=== PATIENT | female | born 1995 | race Caucasian/White ===

== ENCOUNTER 2021-11-12 17:59 | Emergency (ER) | payer BC, SELFPAY ==
--- NOTE | ~2021-11-12 | XR_ITS ---
EXAM: XR lumbar spine min 4V DATE: 11/12/2021 20:30 HISTORY: low back pain L4-L5 ranging right to left [id number] no injury . COMPARISON: None available. FINDINGS: Hypoplastic ribs at T12. 5 nonrib-bearing lumbar-type vertebral bodies. Pedicles intact. No rmal vertebral body alignment. Vertebral body heights preserved. Disc spaces maintained. Normal facet s and posterior elements. No fracture or dislocation. IMPRESSION: No acute fracture or traumatic malalignment in the lumbar spine. Reviewed, dictated and finalized at location K.
[2021-11-12 18:30] VITALS: BP 123/73; PULSE 86; RESP 16; TEMP 36.6; O2SAT 99
--- NOTE | 2021-11-12 19:55 | ED.BACK ---
HPI - Back Pain/Injury General Chief Complaint: Back Pain/Injury Stated Complaint: pinched nerve Time Seen by Provider: 11/12/21 19:42 Source: RN notes reviewed History of Present Illness HPI Narrative: Patient presents emergency room from home for back pain. Patient states pain is located in the lower back bilaterally and radiates into her bilateral legs states the pain is been ongoing since approximately July. She denies any direct trauma or injury to the back she denies any fevers or chills abdominal pain bowel or bladder incontinence she does note intermittent tingling in the bilateral legs. 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 states she did see her PCP and is on gabapentin she is had no previous imaging of her back Related Data Home Medications Medication Instructions Recorded Confirmed gabapentin 300 mg capsule mg 11/12/21 Allergies Allergy/AdvReac Type Severity Reaction Status Date / Time No Known Allergies Allergy Verified 11/12/21 19:40 Review of Systems Review of Systems: Gen.: Denies fevers or chills ENT: Denies congestion Respiratory: Denies shortness of breath CV: Denies chest pain GI: Denies abdominal pain nausea, emesis or diarrhea denies bowel or bladder incontinence Musculoskeletal: See HPI Neuro: Denies numbness, tingling, weakness or focal weakness Skin: Denies rash Except as documented, all other systems reviewed and negative [facility] Past Medical History Medical History Asthma Surgical History Surgical History History of (10/06/17) Family History Family History Other Unknown family medical history Social History Social History Smoking status: Never smoker Alcohol intake: current Alcohol use details: rare Substance use: never Substance use type: does not use Additional living arrangements comments: boyfriend and son 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 Clear to auscultation bilaterally. Abdomen: Soft and nontender, no rebound or guarding MUSCULOSKELETAl: Moves all extremities, no clubbing cyanosis or edema Back: No midline lumbar tenderness to palpation or step-off, tender to palpation over bilateral paravertebral muscles L3-5 , pain increased with forward flexion NEURO: Awake and alert. Following commands, speech normal, no focal deficits, muscle strength 5 out of 5 bilateral lower extremities, bilateral patellar reflex 2+ SKIN:: Warm, dry. Normal Color no rash or lesions Course Course Emergency Course: Discussed with patient results of workup and diagnosis. Discussed need for follow-up with primary care, proper use of medication, and reasons to return to the emergency department. Patient understands and agrees to current treatment plan. Patient states that lidocaine patches have been helping with her back Vital Signs Vital signs: Vital Signs Temperature 97.8 F 11/12/21 18:30 Pulse Rate 86 11/12/21 18:30 Respiratory Rate 16 11/12/21 18:30 Blood Pressure 123/73 11/12/21 18:30 Pulse Oximetry 99 11/12/21 18:30 Temperature 97.8 F 11/12/21 18:30 Pulse Rate 86 11/12/21 18:30 Respiratory Rate 16 11/12/21 18:30 Blood Pressure 123/73 11/12/21 18:30 Pulse Oximetry 99 11/12/21 18:30 MDM - Back Pain/Injury MDM Narrative Medical decision making narrative: Patient?s pain is positional and localiz
[2021-11-12] MEDS: predniSONE 20 MG TABLET 60 MG PO (20:00)
== END 2021-11-12 20:55 | disposition home or self-care (01) ==
LOC: ANHED 20:45
PROVIDERS: Emergency Provider Emergency Medicine; PCP Physician Assistant
DX: M54.50 Low back pain, unspecified (principal); J45.909 Unspecified asthma, uncomplicated
CPT/HCPCS: 72110; 81025; 99283; J7512

== ENCOUNTER 2022-03-18 05:28 | Emergency (ER) | payer BC, SELFPAY ==
--- NOTE | ~2022-03-18 | XR_ITS ---
Portable chest x-ray Comparison: None Clinical History: Dyspnea Findings: Lungs are clear, without focal consolidation or pleural effusion. Cardiomediastinal silho uette is unremarkable. Bones and soft tissues are unremarkable. Impression: Normal chest. Reviewed, dictated and finalized at location . [facility] Impression: Normal chest.
[2022-03-18 05:31] VITALS: BP 122/76; PULSE 106; RESP 20; TEMP 37; O2SAT 97
[2022-03-18 05:38] VITALS: O2SAT 98
--- NOTE | 2022-03-18 05:40 | PC.NURSE ---
Pt states her asthma was triggered by her nathan's hay last night. She felt better after using her albuterol inhaler and was able to fall asleep. She woke up this morning and felt SOB and has audible wheezing. She ran out of her inhaler so she came in. Skin is warm and dry. Able to speak in full sentences. Wheezes heard throughout all lobes.
--- NOTE | 2022-03-18 05:48 | ED.GENADULT ---
HPI - General Adult General Chief complaint: Shortness of Breath/Dyspnea Stated complaint: dyspnea Time Seen by Provider: 03/18/22 05:38 History of Present Illness HPI narrative: this is a 26-year-old female with history of asthma presenting to ED with difficulty breathing. Patient says that she was replacing the straw for her 3 Chinchillas (Pheobe, Dulce, and Gil) when dust came out of the straw and started to irritate her lungs. The patient did not have an albuterol inhaler at home. She was able to go to sleep when she woke up this morning it was even worse. Patient typically has well-controlled asthma does not use the emergency room on a regular basis. 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 She believes that is not helping her asthma situation. She denies fever, chills, chest pain, abdominal pain, urinary symptoms. Last menstrual period was about a week ago. She has Declined a test. Related Data Home Medications Medication Instructions Recorded Confirmed gabapentin 300 mg capsule mg 11/12/21 Allergies Allergy/AdvReac Type Severity Reaction Status Date / Time No Known Allergies Allergy Verified 11/12/21 19:40 [facility] Past Medical History Medical History Asthma Surgical History Surgical History History of (10/06/17) Family History Family History Other Unknown family medical history Social History Social History Smoking status: Never smoker Alcohol intake: current Alcohol use details: rare Substance use: never Substance use type: does not use Living arrangements: other Additional living arrangements comments: boyfriend and son Occupation/Education: occupation 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 patient's plate during the interview Head: atraumatic. EYES: EOMI, NOSE: Atraumatic NECK: Trachea midline RESPIRATORY: diffuse inspiratory and x-ray wheezing in all rayo, no significant increase in work of breathing. patient is speaking in full sentences CARDIOVASCULAR: tachycardic ABDOMINAL: Non-distended MUSCULOSKELETAl: No obvious deformities NEURO: Alert. Moving 4/4 extremities SKIN:: Warm, dry. Normal color PSYCHIATRIC: Normal affect Course Vital Signs Vital signs: Vital Signs Temperature 98.6 F 03/18/22 05:31 Pulse Rate 106 H 03/18/22 05:31 Respiratory Rate 20 03/18/22 05:31 Blood Pressure 122/76 03/18/22 05:31 Pulse Oximetry 97 03/18/22 05:31 Oxygen Delivery Room Air 03/18/22 05:31 Temperature 98.6 F 03/18/22 05:31 Pulse Rate 99 03/18/22 06:10 Respiratory Rate 18 03/18/22 06:10 Blood Pressure 123/79 03/18/22 06:03 Pulse Oximetry 99 03/18/22 06:03 Oxygen Delivery Room Air 03/18/22 05:38 Medical Decision Making [facility] Narrative Medical decision making narrative: -Presentation: 26-year-old asthmatic presenting to ED with dyspnea and wheezing. 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 -Procedures: None -Interventions: DuoNeb nebulizer, magnesium, IV steroids, 1 L normal saline -Shared decision making / Disposition: She is given a breathing treatment, s
[2022-03-18] MEDS: SODIUM CHLORIDE 0.9% IV 1,000 ML 999 ML IV CONT (05:56)
[2022-03-18] MEDS: ALBUTEROL SULFATE NEB 2.5 MG/3 ML INH INHALATION (05:57)
[2022-03-18 05:58] VITALS: PULSE 92; RESP 18
[2022-03-18] MEDS: IPRATROPIUM BR 0.02% INH SOLN 0.5 MG/2.5 ML VIAL INHALATION (05:58)
[2022-03-18] MEDS: methylPREDNISolone SOD SUCC 125 MG VIAL IV PUSH (05:59)
[2022-03-18] MEDS: MAGNESIUM SULF 2 GM/WATER 50ML 2 GM/50 ML BAG IVPB (06:00)
[2022-03-18 06:03] VITALS: BP 123/79; PULSE 92; RESP 22; O2SAT 99
[2022-03-18 06:10] VITALS: PULSE 99; RESP 18
--- NOTE | 2022-03-18 06:37 | PC.NURSE ---
Inspiratory and expiratory wheezing still heard throughout all rayo but pt states she feels better after her breathing treatment. Instructed pt to use her call light if she feels worse. Pt verbalized understanding.
== END 2022-03-18 07:04 | disposition home or self-care (01) ==
PROVIDERS: Emergency Provider Emergency Medicine; PCP Physician Assistant
DX: J45.901 Unspecified asthma with (acute) exacerbation (principal)
CPT/HCPCS: 71045; 94640; 96365; 96375; 99284; J2930; J3475; J7030

== ENCOUNTER 2022-11-27 10:59 | Emergency (ER) | payer BC, SELFPAY ==
--- NOTE | ~2022-11-27 | XR_ITS ---
[id number] DATE: 11/27/2022 13:34 INDICATION: Laveen a pop after coughing. Left rib pain. TECHNIQUE: PA chest. 3 views of the left ribs. COMPARISON: None FINDINGS: There is a lateral healed left sixth rib fracture. No recent rib fracture is noted on the l eft. Normal heart size. No hilar or mediastinal enlargement. No pulmonary infiltrate or consolidation, ple ural effusion or pulmonary vascular congestion or pneumothorax. IMPRESSION: Old healed lateral left sixth rib fracture No active cardiopulmonary disease Reviewed, dictated and finalized at Location A. Reviewed, dictated and finalized at location B.
--- NOTE | ~2022-11-27 | US_ITS ---
EXAMINATION: US OB <= 14 weeks fetus DATE: 11/27/2022 13:17 INDICATION: Abdominal pain TECHNIQUE: Real-time pelvic ultrasound utilizing transabdominal probe was performed. The je beverly radiologist was not present for the study. COMPARISON: None. FINDINGS: The uterus measures 8.1 x 5.2 x 6.8 cm. There is an intrauterine gestational sac. A yolk sac and fet al pole are identified. The crown rump length measures 1.1 cm, which correlates with an estimated ges tational age of 7 weeks and 1 days. heart motion is identified measuring 124 beats per minute ( bpm) by M-mode Doppler. The right ovary measures 4.2 x 2.4 x 2.3 cm and contains a 3.0 x 2.5 x 2.2 cm anechoic cyst/follicle. The left ovary measures 3.3 x 1.6 x 1.6 cm. Vascular flow identified in both ovaries on color Dopple r. There is no free fluid in the pelvis. IMPRESSION: 1. Single living fetus with heart rate of 124 bpm. 2. Gestational age by ultrasound of 7 weeks 1 day(s) +/- 5 day(s) with ultrasound estimated date of delivery (RICH) of 07/15/2023. Reviewed, dictated and finalized at location A. IMPRESSION: 1. Single living fetus with heart rate of 124 bpm. 2. Gestational age by ultrasound of 7 weeks 1 day(s) +/- 5 day(s) with ultraso und estimated date of delivery (RICH) of 07/15/2023.
[2022-11-27 11:09] VITALS: BP 120/73; PULSE 89; RESP 22; TEMP 35.9; O2SAT 98
[2022-11-27 12:04] LABS: Basophils Percent Auto 0.2 % (0.2-1.2); Eosinophils Absolute Auto 0.2 K/mm3 (0-0.3); Eosinophils Percent Auto 1.2 % (0-4.4); Hematocrit 38.5 % (37.0-47.0); Hemoglobin 13.3 g/dL (12.0-15.0); Immature Granulocyte Absolute 0.07 K/mm3 (0.00-0.031); Immature Granulocyte Percent A 0.5 % (0-0.5); Lymphocytes Absolute Auto 1.49 K/mm3 (0.9-3.2); Lymphocytes Percent Auto 9.8 % (18.3-44.2); Mean Corpuscular HGB Conc 34.5 g/dl (32-36); Mean Corpuscular Hemoglobin 30.7 pg (26-34); Mean Corpuscular Volume 88.9 fl (80-100); Mean Platelet Volume 8.8 fl (7.4-10.4); Monocytes Absolute Auto 0.6 K/mm3 (0.1-0.6); Monocytes Percent Auto 4.1 % (2.6-8.5); Neutrophils Absolute Auto 12.8 K/mm3 (1.3-6.7); Neutrophils Percent Auto 84.2 % (45.5-73.1); Platelet Count Result 326 k/mm3 (150-375); Red Blood Count 4.33 M/mm3 (4.2-5.4); Red Cell Distribution Width 13.3 % (11.5-14.5); White Blood Count 15.2 K/mm3 (4.5-10.0)
[2022-11-27 12:14] LABS: Alanine Aminotransferase 18 U/L (6-35); Albumin Level 4.3 g/dL (3.5-5.1); Alkaline Phosphatase 69 U/L (38-126); Anion Gap 9 mmol/L (8-16); Aspartate Amino Transferase 24 U/L (14-36); Bilirubin,Total 0.6 mg/dL (0.2-1.3); Blood Urea Nitrogen 9 mg/dL (7-17); Calcium 8.8 mg/dL (8.4-10.2); Carbon Dioxide 22 mmol/L (22-30); Chloride 103 mmol/L (98-107); Estimated CRCL calculation 169 ml/min; Estimated Glomerular Filt Rate > 60; Glucose 114 mg/dL (65-110); Lipase 61 U/L (23-300); Potassium 3.6 mmol/L (3.4-5.0); Sodium 134 mmol/L (137-145)
[2022-11-27 12:16] LABS: Add Urine Microscopic? YES; Appearance Urine Turbid (Clear); Bacteria Urine 4+ /hpf; Bilirubin Urine Negative (Negative); Blood Urine Negative (Negative); Color Urine Dark Yellow (Yellow); Glucose Urine UA Negative (Negative); Ketones Urine 2+ mg/dL (Negative); Leukocyte Esterase Ur Trace LEU/UL (Negative); Need Manual Microscopic Reviewed; Nitrate Urine Negative (Negative); Protein Urine 1+ mg/dL (Negative); Specific Grav Ur 1.034 (1.001-1.035); Squamous Epithelial Cell Urine Many /hpf (Few); WBC Urine 21-50 /hpf
[2022-11-27] MEDS: SODIUM CHLORIDE 0.9% IV 1,000 ML 999 ML IV CONT (12:33)
[2022-11-27] MEDS: FAMOTIDINE 20 MG/2 ML VIAL IV PUSH (12:33)
[2022-11-27] MEDS: METOCLOPRAMIDE HCL INJ 10 MG/2 ML VIAL IV PUSH (12:33)
--- NOTE | 2022-11-27 12:58 | ED.GENADULT ---
HPI - General Adult General Chief complaint: Abdominal Pain Stated complaint: vomiting, Time Seen by Provider: 11/27/22 12:02 History of Present Illness HPI narrative: Lisa Montalvo is a 27 y/o female who presents [facility] reports of being about 7 weeks , LMP was Oct 06 - her first OB appointment is Dec 10. She reports that for the past 3 weeks she has had some interrmittent nausea/vomiting - she felt well yesterday and was able to keep food down. She got up today and felt ok, she tried to eat and she started to feel nauseated and vomited. Related Data Home Medications Medication Instructions Recorded Confirmed gabapentin 300 mg capsule mg 11/12/21 Allergies Allergy/AdvReac Type Severity Reaction Status Date / Time No Known Allergies Allergy Verified 11/12/21 19:40 Review of Systems Review of Systems: CONSTITUTIONAL: Denies fever, chills, or sweats. EYES: Denies visual changes, redness, or discharge. ENT: Denies rhinorrhea, congestion, sore throat, or otalgia. CARDIOVASCULAR: Denies chest pain, palpitations, or edema. She reports of left back/rib pain from coughing for about a week. RESPIRATORY: Reports of cough intermittently productive for about a week. GASTROINTESTINAL: Reports of upper abdominal pain with nausea/vomiting that has been off and on for about 3 weeks GENITOURINARY: Denies dysuria or hematuria. SKIN: Denies rash or itching. MUSCULOSKELETAL: Denies back pain, joint pain, or myalgia. NEUROLOGIC: Denies headache, numbness, dizziness, or weakness. PSYCHIATRIC: Denies anxiety or depression. 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 HEAD: Normocephalic, atraumatic. EYES: PERRLA and EOMI. ENT: Nares clear, no rhinorrhea or epistaxis. Mucous membranes moist. Oropharynx without tonsillar hypertrophy exudate or other lesions. NECK: Supple. No adenopathy or masses. No carotid bruits or JVD CHEST: Clear to auscultation. No respiratory distress. No wheezes rales or rhonchi HEART: Regular rate and rhythm. No murmur heard. Normal peripheral pulses. ABDOMEN: Soft, nondistended, normal active bowel sounds. EXTREMITIES: Normal range of motion. No edema. SKIN: Warm, dry, no rash. NEURO: No focal deficits. Alert and oriented x3. PSYCH: Normal mood and affect. Course Vital Signs Vital signs: Vital Signs Temperature 35.9 C L 11/27/22 11:09 Pulse Rate 89 11/27/22 11:09 Respiratory Rate 22 H 11/27/22 11:09 Blood Pressure 120/73 11/27/22 11:09 Pulse Oximetry 98 11/27/22 11:09 Oxygen Delivery Room Air 11/27/22 11:09 Temperature 35.9 C L 11/27/22 11:09 Pulse Rate 106 H 11/27/22 14:40 Respiratory Rate 20 11/27/22 14:40 Blood Pressure 131/70 11/27/22 14:40 Pulse Oximetry 97 11/27/22 14:40 Oxygen Delivery Room Air 11/27/22 11:09 Medical Decision Making [facility]DM Narrative Medical decision making narrative: Patient reports that she was able to eat last night and keep her food down, she woke up and felt ok, and
[2022-11-27 13:28] LABS: Influenza A QL RT-PCR Negative (Negative); Influenza B QL RT-PCR Negative (Negative); RSV RNA, RT-PCR Negative (Negative); SARS-CoV-2 RNA PCR Negative (Negative)
--- NOTE | 2022-11-27 14:30 | PC.NURSE ---
pt states is feeling some better but states some nausea remains. pa offered pt another bag of ns and additional reglan but pt refuses. states she just wants to go home. states those interventions will not help her.
[2022-11-27 14:40] VITALS: BP 131/70; PULSE 106; RESP 20; O2SAT 97
== END 2022-11-27 15:15 | disposition left against medical advice (07) ==
PROVIDERS: Emergency Medicine; Emergency Provider Nurse Practitioner Family; PCP Physician Assistant
DX: O23.11 Infections of bladder in pregnancy, first trimester (principal); O99.281 Endocrine, nutritional and metabolic diseases complicating pregnancy, first trimester; E86.0 Dehydration; Z3A.01 Less than 8 weeks gestation of pregnancy; Z53.29 Procedure and treatment not carried out because of patient's decision for other reasons; Z20.822 Contact with and (suspected) exposure to COVID-19
CPT/HCPCS: 36415; 71101; 76801; 80053; 81001; 81025; 83690; 85025; 87086; 87088; 87637; 96361; 96374; 96375; 99284; J2765; J7030

== ENCOUNTER 2023-01-24 02:54 | Inpatient (IN) | payer BC, SELFPAY ==
[2023-01-24] VITALS (43 sets, daily range): BP systolic 95–133; BP diastolic 49–64; PULSE 96–133; RESP 16–44; TEMP 36.2–37.9; O2SAT 91–99; BMI 38.3
--- NOTE | ~2023-01-24 | XR_ITS ---
XR chest 1V portable 01/24/2023 04:11 Indication: Dyspnea Procedure: AP portable chest Comparison: 03/18/2022 Findings: Shallow inspiration. Bibasilar airspace disease. Small left pleural effusion. No pneumothor ax. Heart size upper normal for technique. Impression: 1: Bibasilar airspace disease may represent pneumonia and/or atelectasis. 2: Small left pleural effusion. Reviewed, dictated and finalized at location A. ESTATE TEACHER Impression: 1: Bibasilar airspace disease may represent pneumonia and/or atelectasis. 2: Small left pleural effusion.
--- NOTE | 2023-01-24 03:20 | ECG_ITS ---
Measurements Intervals [place] Rate: 133 P: 44 RI: 125 QRS: -10 QRSD: 89 T: 24 QT: 299 QTc: 446 Interpretive Statements SINUS TACHYCARDIA POOR R-WAVE PROGRESSION OTHERWISE NORMAL ECG NO PREVIOUS ECG AVAILABLE FOR COMPARISON Electronically Signed On 01-24-2023 9:06:46 CARTOGRAPHIC ENGINEER by Olvin Rose M.D.
[2023-01-24 03:29] LABS: Basophils Absolute Auto 0.1 K/mm3 (0.0-0.1); Basophils Percent Auto 0.4 % (0.2-1.2); Eosinophils Absolute Auto 0.1 K/mm3 (0-0.3); Eosinophils Percent Auto 0.4 % (0-4.4); Hematocrit 30.9 % (37.0-47.0); Hemoglobin 10.8 g/dL (12.0-15.0); Immature Granulocyte Absolute 0.19 K/mm3 (0.00-0.031); Immature Granulocyte Percent A 1.1 % (0-0.5); Lymphocytes Absolute Auto 1.15 K/mm3 (0.9-3.2); Lymphocytes Percent Auto 6.5 % (18.3-44.2); Mean Corpuscular Hemoglobin 30.8 pg (26-34); Monocytes Absolute Auto 0.6 K/mm3 (0.1-0.6); Monocytes Percent Auto 3.5 % (2.6-8.5); Neutrophils Absolute Auto 15.5 K/mm3 (1.3-6.7); Neutrophils Percent Auto 88.1 % (45.5-73.1); Platelet Count Result 270 k/mm3 (150-375); Red Blood Count 3.51 M/mm3 (4.2-5.4); Red Cell Distribution Width 12.4 % (11.5-14.5); White Blood Count 17.6 K/mm3 (4.5-10.0)
[2023-01-24] MEDS: SODIUM CHLORIDE 0.9% IV 1,000 ML 999 ML IV CONT ×2 (03:31→05:36)
[2023-01-24 03:44] LABS: Alanine Aminotransferase 15 U/L (6-35); Albumin Level 3.4 g/dL (3.5-5.1); Alkaline Phosphatase 110 U/L (38-126); Anion Gap 7 mmol/L (8-16); Aspartate Amino Transferase 23 U/L (14-36); Bilirubin,Total 0.5 mg/dL (0.2-1.3); Blood Urea Nitrogen 6 mg/dL (7-17); Calcium 8.5 mg/dL (8.4-10.2); Carbon Dioxide 21 mmol/L (22-30); Chloride 101 mmol/L (98-107); Estimated CRCL calculation 168 ml/min; Estimated Glomerular Filt Rate > 60; Glucose 168 mg/dL (65-110); Potassium 2.9 mmol/L (3.4-5.0); Sodium 129 mmol/L (137-145)
[2023-01-24 03:45] LABS: Lactic Acid Reflex 1.8 mmol/L (0.7-2.0)
[2023-01-24 03:54] LABS: INR 1.2; Prothrombin Time 16.2 Seconds (11.1-14.7)
[2023-01-24 03:55] LABS: Partial Thromboplastin Time 42.5 SECONDS (22.3-36.8)
[2023-01-24 03:59] LABS: NT Pro B Type Natriuretic Pept 620 pg/mL (19.9-100); Troponin I < 0.012 ng/mL (0.000-0.034)
[2023-01-24] MEDS: IPRATROPIUM BR 0.02% INH SOLN 0.5 MG/2.5 ML VIAL INHALATION ×4 (04:05→20:08)
[2023-01-24] MEDS: ALBUTEROL SULFATE NEB 2.5 MG/3 ML INH INHALATION ×4 (04:05→20:08)
[2023-01-24 04:07] LABS: Strep Group A RT-PCR DETECTED (Negative)
[2023-01-24 04:20] LABS: Influenza A QL RT-PCR Negative (Negative); Influenza B QL RT-PCR Negative (Negative); RSV RNA, RT-PCR Negative (Negative); SARS-CoV-2 RNA PCR Negative (Negative)
[2023-01-24] MEDS: ACETAMINOPHEN 500 MG TABLET 1000 MG PO (04:30)
[2023-01-24] MEDS: AMPICILLIN SULB 3 GM/NS 100 ML 3 GM/100 ML VIAL IVPB (04:34)
[2023-01-24 04:45] LABS: Appearance Urine Cloudy (Clear); Bacteria Urine 3+ /hpf; Bilirubin Urine 1+ (Negative); Blood Urine Negative (Negative); Color Urine Dark Yellow (Yellow); Glucose Urine UA Negative (Negative); Ketones Urine 1+ mg/dL (Negative); Leukocyte Esterase Ur Negative LEU/UL (Negative); Need Manual Microscopic Reviewed; Nitrate Urine Negative (Negative); Non Pathogenic Casts 0-2; Protein Urine 2+ mg/dL (Negative); Squamous Epithelial Cell Urine Many /hpf (Few)
[2023-01-24 04:49] LABS: Add Urine Microscopic? YES
--- NOTE | 2023-01-24 04:55 | ED.GENADULT ---
HPI - General Adult General Chief complaint: Shortness of Breath/Dyspnea Stated complaint: cold symptoms Time Seen by Provider: 01/24/23 03:06 History of Present Illness HPI narrative: patient [age] year old female who presents to emergency department chief complaint of generalized body aches generalized malaise. Patient states he has been coughing bleeding has had a sinus infection patient reports that she is 15 weeks and reports that she has not felt well. Patient states she has felt little short of breath reports that she does have some pleuritic-type pain in her chest patient reports she has had a cough has been nonproductive. Patient reports no other medical conditions. Related Data Home Medications Medication Instructions Recorded Confirmed gabapentin 300 mg capsule mg 11/12/21 Allergies Allergy/AdvReac Type Severity Reaction Status Date / Time No Known Allergies Allergy Verified 01/24/23 03:15 Review of Systems Review of Systems: A 10 system review of systems was completed on the patient and is negative except for what is stated in the HPI. Nursing and ancillary documentation was reviewed. 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 HEAD: Normocephalic, atraumatic. EYES: PERRLA and EOMI. ENT: Nares clear, no rhinorrhea or epistaxis. Mucous membranes moist. NECK: Supple. CHEST: Clear to auscultation. No respiratory distress. HEART: Tachycardic rate and normal rhythm. No murmur heard. Normal peripheral pulses. ABDOMEN: Soft, nontender, nondistended, normal active bowel sounds. EXTREMITIES: Normal range of motion. No edema. SKIN: Warm, dry, no rash. NEURO: No focal deficits. Alert and oriented x3. PSYCH: Normal mood and affect. Course Vital Signs Vital signs: Vital Signs Temperature 37.0 C 01/24/23 02:58 Pulse Rate 123 H 01/24/23 02:58 Respiratory Rate 30 H 01/24/23 02:58 Blood Pressure 133/61 01/24/23 02:58 Pulse Oximetry 96 01/24/23 02:58 Oxygen Delivery Room Air 01/24/23 02:58 Temperature 37.6 C H 01/24/23 05:09 Pulse Rate 108 H 01/24/23 06:27 Respiratory Rate 30 H 01/24/23 06:27 Blood Pressure 100/53 L 01/24/23 06:00 Pulse Oximetry 94 01/24/23 06:27 Oxygen Delivery Room Air 01/24/23 03:14 Medical Decision Making [facility] Narrative Medical decision making narrative: differential diagnosis includes pneumonia, COVID, strep, UTI, dehydration patient was initially profoundly tachycardic received IV fluid boluses and heart rate has improved significantly. Patient was found to be hypokalemic with a potassium of 2.9 potassium replacement was started the patient was found to be strep positive patient was given 3 g Unasyn in the ER white count of 17.6 patient underwent chest x-ray which did show probable developing pneumonia the patient also has 11-20 white blood cells in the urine and 3+ bacteria. heart tones were 159 the patient is having significant improvement
[2023-01-24] MEDS: MORPHINE SULFATE (*CRX) 4 MG/ML INJ IV PUSH (05:09)
[2023-01-24] MEDS: POTASSIUM CHLORIDE 20 MEQ PACKET (FOR LIQUID) 40 MEQ PO (05:09)
[2023-01-24] MEDS: KCL 20 MEQ/SW 100 ML 100 ML 50 MEQ IVPB (05:23)
[2023-01-24] MEDS: AZITHROMYCIN 500 MG/NS 250 ML 500 MG/250 ML BAG 250 MG IVPB (07:34)
[2023-01-24 08:20] LABS: CRP 29.5 mg/dL (<1.0)
[2023-01-24] MEDS: SODIUM CHLORIDE 0.9% IV 1,000 ML 125 ML IV CONT (09:09)
--- NOTE | 2023-01-24 10:37 | WPDCN ---
Assessment and Plan Assessment and plan (1) Community acquired pneumonia: Code(s): J18.9 - Pneumonia, unspecified organism Status: Acute Assessment and Plan: Care per primary team. (2) : Code(s): Z34.90 - Encounter for supervision of normal , unspecified, unspecified trimester Status: Acute Assessment and Plan: Recommend daily heart tones. HPI Data of Consult Date/Time: 01/24/23 10:37 Requesting Physician: Mariposa Byrd DO Primary Care Provider: Jessie Prince, PA Consult Narrative Reason for consult: patient admitted for pneumonia Narrative: Lisa Montalvo is a 27 year old female at approximatey 15 weeks admitted to medicine service for pneumonia. No bleeding. heart tones obtained in ED. 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 Gender identity (if verbalized by the patient): Female Sexual Orientation (if Verbalized by the Patient): Straight or Heterosexual Meds Home Medications and Allergies Home Medications Medication Instructions Recorded Confirmed Type levonorgestrel-ethinyl estradiol 1 tablet PO DAILY #84 tabs 06/17/21 Rx 0.1 mg-20 mcg tablet (Aviane) cyclobenzaprine 10 mg tablet 10 mg PO TID PRN muscle spasm #8 11/12/21 Rx tabs gabapentin 300 mg capsule mg 11/12/21 History ibuprofen 600 mg tablet 600 mg PO TID PRN pain #14 tabs 11/12/21 Rx lidocaine 4 % topical patch 1 patch topical DAILY PRN pain #10 11/12/21 Rx ea methylprednisolone 4 mg tablets in See Rx Instructions PO .COMPLEX 11/12/21 Rx a dose pack (Medrol ([place])) #21 ea albuterol sulfate 90 mcg/actuation 1 inh inhalation QID PRN shortness 03/18/22 Rx aerosol inhaler of breath or wheezing #8.5 grams prednisone 50 mg tablet 50 mg PO DAILY #5 tabs 03/18/22 Rx cephalexin 500 mg capsule 500 mg PO Q8H #21 caps 11/27/22 Rx metoclopramide HCl 5 mg tablet 5 mg PO BID #10 tabs 11/27/22 Rx (Reglan) Allergies Allergy/AdvReac Type Severity Reaction Status Date / Time No Known Allergies Allergy Verified 01/24/23 03:15 Vital Signs Vital Signs - 24 hr 01/24/23 02:58 01/24/23 03:14 01/24/23 03:41 Temperature 98.6 F Pulse Rate 123 H 130 H Respiratory Rate 30 H 35 H Blood Pressure 133/61 120/60 Pulse Oximetry 96 94 93 Oxygen Delivery Room Air Room Air 01/24/23 04:06 01/24/23 04:18 01/24/23 04:25 Temperature 100.2 F H Pulse Rate 133 H 126 H 128 H Respiratory Rate 44 H 40 H 34 H Blood Pressure Pulse Oximetry 91 95 Oxygen Delivery 01/24/23 05:09 01/24/23 05:16 01/24/23 05:17 Temperature 99.7 F H Pulse Rate 122 H Respiratory Rate 38 H Blood Pressure 103/58 L Pulse Oximetry 91 93 Oxygen Delivery 01/24/23 06:00 01/24/23 06:27 01/24/23 06:47 Temperature Pulse Rate 118 H 108 H 111 H Respiratory Rate 35 H 30 H 32 H Blood Pressure 100/53 L Pulse Oximetry 93 94 94 Oxygen Delivery 01/24/23 07:00 01/24/23 07:18 01/24/23 07:42 Temperature Pulse Rate 106 H 111 H 106 H Respiratory Rate 25 H 28 H 24 H Blood Pressure Pulse Oximetry 94 91 Oxygen Delivery 01/24/23 07:42 01/24/23 07:49 Temperature Pulse Rate 105 H Respiratory R
--- NOTE | 2023-01-24 11:55 | ADMGEN ---
This patient, Lisa Montalvo, was admitted to 3 [facility] Surg Room 312-01. Patient/family oriented to hospital policies and general routines including ID bracelet, bed and alarms, visiting hours, pain management, procedures, bathroom and other care routines, personal items, smoking policy, room service/diet, and visiting hours. Information on how to activate the Rapid Response Team has been discussed. Patient/Family are encouraged to report perceived risks to care and to ask questions if they do not understand what they are told or what they should do.
--- NOTE | 2023-01-24 13:05 | PM.IMHP ---
H&P: HPI History of Present Illness Date/Time: 01/24/23 13:05 Chief Complaint: Cold symptoms. Narrative: This is a 27-year-old female at approximately 15 weeks gestation with asthma who presented to the emergency department via private vehicle in the matte cutter hours for evaluation of cold symptoms and been ongoing for several weeks. The patient provides following history. She has not felt well for several weeks with symptoms to include fever to 102?, sinus congestion, cough productive of green-yellow sputum, sore throat, and pleuritic pain. 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 She denies syncope, near syncope, neck ache, rash, exertional chest pain, vomiting, and diarrhea. She also denies lower extremity edema, calf pain, and personal or family history of venous thromboembolism. On arrival to the ED she had a low-grade temperature of 100.2? F. Respiratory rate was 44 but improved following a nebulizer treatment. She presented in a sinus tachycardia with rates in the 130s but that has since improved. Labs were significant for a WBC count of 17.6, hemoglobin 10 8, sodium 129, potassium 2.9, glucose 168, lactic acid 1.8, CRP 29.5, proBNP 620, troponin 0.012, procalcitonin 75. Group A strep screen was positive. She was negative for influenza, RSV, and COVID. Chest x-ray showed bibasilar airspace disease which may represent atelectasis and/or pneumonia and small left pleural effusion. She was given 2 L normal saline bolus, 40 mEq potassium chloride, was started on antibiotics, and she is being admitted in this setting for further treatment. Review of Systems Review of Systems: Twelve systems were reviewed and are negative except for as per HPI. [facility] Past Medical History Medical History Anxiety Asthma Fibromyalgia Interstitial cystitis Surgical History Surgical History History of (10/06/17) Family History Family History Other No pertinent family history in first degree relatives Social History Social History Social History: Surrogate medical decision maker: Derrick Montalvo, father. Code status: Full code. Smoking status: Never smoker Second hand tobacco smoke exposure: No Alcohol intake: former Alcohol use details: Rare alcohol use in moderation. 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 Spiritual care concerns: No Meds Home Medications and Allergies Home Medications Medication Instructions Recorded Confirmed Type albuterol sulfate 90 mcg/actuation 2 inh inhalation QID PRN shortness 01/24/23 01/24/23 History aerosol inhaler of breath or wheezing budesonide-formoterol HFA 160 2 puff inhalation BID 01/24/23 01/24/23 History mcg-4.5 mcg/actuation aerosol inhaler (Symbicort) escitalopram oxalate 20 mg tablet 20 mg PO HS 01/24/23 01/24/23 History fluticasone propionate 50 1 spray intranasal DAILY 01/24/23 01/24/23 History mcg/actuation nasal spray,suspension vit no.95-ferrous 1 tablet PO DAILY 01/24/23 01/24/23 History fumarate 28 mg-folic acid 800 mcg tablet () Allergies Allergy/AdvReac Type Severity Daniella
[2023-01-24 15:11] LABS: Anion Gap 6 mmol/L (8-16); Blood Urea Nitrogen 6 mg/dL (7-17); Carbon Dioxide 19 mmol/L (22-30); Chloride 108 mmol/L (98-107); Glucose 94 mg/dL (65-110); Magnesium 1.9 mg/dL (1.6-2.3); Potassium 3.8 mmol/L (3.4-5.0); Sodium 133 mmol/L (137-145)
[2023-01-24 15:16] LABS: Estimated CRCL calculation 215 ml/min; Estimated Glomerular Filt Rate > 60
[2023-01-24] MEDS: ACETAMINOPHEN 325 MG TABLET 650 MG PO (15:28)
[2023-01-24] MEDS: LACTATED RINGERS 1,000 ML 100 ML IV CONT (18:15)
[2023-01-24 19:10] LABS: Sodium Urine Random 230 meq/L
[2023-01-24] MEDS: FLUTICASONE/SALMETEROL 115-21 MCG INHALER 1 PUFF 2 PUFF INHALATION (20:11)
[2023-01-25] VITALS (18 sets, daily range): BP systolic 92–115; BP diastolic 49–69; PULSE 77–121; RESP 16–21; TEMP 36–36.1; O2SAT 95–98
[2023-01-25] MEDS: ACETAMINOPHEN 325 MG TABLET 650 MG PO ×2 (00:29→08:56)
[2023-01-25] MEDS: ALBUTEROL SULFATE NEB 2.5 MG/3 ML INH INHALATION ×4 (02:23→21:01)
[2023-01-25] MEDS: IPRATROPIUM BR 0.02% INH SOLN 0.5 MG/2.5 ML VIAL INHALATION ×4 (02:24→21:01)
[2023-01-25] MEDS: LACTATED RINGERS 1,000 ML 100 ML IV CONT ×2 (03:30→13:35)
[2023-01-25 06:50] LABS: Hematocrit 26.9 % (37.0-47.0); Hemoglobin 8.8 g/dL (12.0-15.0); Mean Corpuscular HGB Conc 32.7 g/dl (32-36); Mean Corpuscular Hemoglobin 29.9 pg (26-34); Mean Corpuscular Volume 91.5 fl (80-100); Mean Platelet Volume 9.5 fl (7.4-10.4); Platelet Count Result 270 k/mm3 (150-375); Red Blood Count 2.94 M/mm3 (4.2-5.4); Red Cell Distribution Width 13.1 % (11.5-14.5)
[2023-01-25 07:05] LABS: Anion Gap 7 mmol/L (8-16); Blood Urea Nitrogen 6 mg/dL (7-17); Calcium 8.4 mg/dL (8.4-10.2); Carbon Dioxide 19 mmol/L (22-30); Chloride 109 mmol/L (98-107); Estimated CRCL calculation 169 ml/min; Estimated Glomerular Filt Rate > 60; Glucose 101 mg/dL (65-110); Potassium 3.4 mmol/L (3.4-5.0); Sodium 135 mmol/L (137-145)
[2023-01-25] MEDS: MULTIVIT/MIN/PREN/FOL AC/IRON TABLET 1 TAB PO (08:56)
--- NOTE | 2023-01-25 09:07 | PM.OBPNVD ---
OB - PN: Subj Subjective Date/time seen: 01/25/23 09:07 Interval history: Lisa is a 27yo @ 15.6 wks (RICH 07/13/23) admitted 01/24/23 with CAP HD#2 Afebrile, coughing up a lot of sputum (mixed in with blood). Not feeling well; achy. Getting antibiotics and breathing treatments (one currently). Tolerating regular diet, but has decreased appetite/intake, so very nauseous. Normal BM/voids. No vaginal discharge, bleeding. No pelvic pain. Feeling small flutters. OB - PN: Obj Data Labs 01/25/23 06:17 01/25/23 06:17 Labs: Laboratory Results - last 24 hr 01/24/23 01/24/23 01/24/23 14:31 14:31 18:29 WBC RBC Hgb Hct MCV MCH MCHC RDW Plt Count MPV Sodium 133 L Potassium 3.8 Chloride 108 H Carbon Dioxide 19 L Anion Gap 6 L BUN 6 L Creatinine 0.30 L Estim Creat Clear Calc 215 Estimated GFR > 60 Glucose 94 Calcium 8.0 L Magnesium 1.9 Cancelled TSH (Reflex) 0.950 Ur Random Sodium 230 Urine Creatinine 115.0 01/25/23 06:17 WBC 9.0 RBC 2.94 L Hgb 8.8 L Hct 26.9 L MCV 91.5 MCH 29.9 MCHC 32.7 RDW 13.1 Plt Count 270 MPV 9.5 Sodium 135 L Potassium 3.4 Chloride 109 H Carbon Dioxide 19 L Anion Gap 7 L BUN 6 L Creatinine 0.40 L Estim Creat Clear Calc 169 Estimated GFR > 60 Glucose 101 Calcium 8.4 Magnesium 2.0 TSH (Reflex) Ur Random Sodium Urine Creatinine OB - PN A/P Assessment and Plan (1) Community acquired pneumonia: Code(s): J18.9 - Pneumonia, unspecified organism Status: Acute Assessment and Plan: - Primary team to manage; - Currently on antibiotics, breathing treatments - Blood cultures: positive for gram + cocci in chains - (2) : Code(s): Z34.90 - Encounter for supervision of normal , unspecified, unspecified trimester Status: Acute Assessment and Plan: - Heart tones daily by OB nursing - Getting care w/ MFM but low risk, reports no issues this (has h/o x1) - Tylenol PRN pain - Robitussin, mucinex safe in (avoid high doses of phenylephrine or psuedophed) - Frequent snacking encouraged; zofran 4mg IV q4h PRN - SCD's and lovenox 40sq daily for DVT prevention - Feel free to call OB if concerned about med safety in (3) Anemia affecting second : Code(s): O99.019 - Anemia complicating , unspecified trimester Status: Acute Assessment and Plan: - Iron studies pending - Venofer 500mg IV x3 if iron deficient (4) Anxiety: Code(s): F41.9 - Anxiety disorder, unspecified Status: Acute Assessment and Plan: - Hydroxyzine 50mg TID PRN Time Spent With Patient Time: Total time spent is greater than 50% in coordination of care (as documented) at patient's floor/unit and/or counseling patient: Review of Systems Constitutional: Constitutional: Denies chills, Reports fatigue, Denies fever(s) and Reports poor appetite Cardiovascular: Cardiovascular: Denies chest pain and Denies rapid heart rate Respiratory: Respiratory: Reports cough, Reports hemoptysis, Reports excessive phlegm production and Denies dyspnea Gastrointestinal: Gastrointestinal: Denies heartburn, Reports nausea and Denies vomiting Genitourinary: Genitourinary: Denies abnormal vaginal bleeding and Denies vaginal discharge Musculoskeletal: Musculoskeletal: Reports back pain and Reports arthralgias Neurologic: Denies dizziness and Denies headache(s) Psychiatric: Psychiatric: Reports anxiety Exam Const: General: cooperative, anxious and ill appearing Nutritional Appearance: obese Orientation/consciousness: patient oriented x3 Resp: Effort & Inspection: Actively coughing Other: actively getting breathing treatments; tachypneic, breath sounds clear Cardio: Rate: regular rate GI: GI Palp: Yes Soft to palpation a
[2023-01-25] MEDS: FLUTICASONE/SALMETEROL 115-21 MCG INHALER 1 PUFF 2 PUFF INHALATION ×2 (09:14→21:01)
[2023-01-25] MEDS: AZITHROMYCIN 500 MG/NS 250 ML 500 MG/250 ML BAG 250 MG IVPB (09:16)
[2023-01-25] MEDS: ENOXAPARIN 40 MG/0.4 ML SYRINGE SUB-Q (09:17)
[2023-01-25] MEDS: ONDANSETRON INJ 4 MG/2 ML VIAL IV PUSH (09:21)
[2023-01-25 10:17] LABS: Hemoglobin A1C 4.9 % (<5.7)
[2023-01-25 10:33] LABS: Iron < 10 ug/dL (37-170)
[2023-01-25 10:42] LABS: Percent Iron Saturation 4 % (20-50)
--- NOTE | 2023-01-25 13:04 | PM.IMPN ---
Progress Note: A&P Assessment and Plan (1) Community acquired pneumonia: Code(s): J18.9 - Pneumonia, unspecified organism Status: Acute Assessment and Plan: Continue Rocephin azithromycin, initiated 01/24 Blood cultures came back positive for gram positive cocci, vancomycin initiated 01/25 Repeat blood cultures ordered for tomorrow 01/26 (2) Acute streptococcal pharyngitis: Code(s): J02.0 - Streptococcal pharyngitis Status: Acute Assessment and Plan: See above (3) Electrolyte abnormality: Code(s): E87.8 - Other disorders of electrolyte and fluid balance, not elsewhere classified Status: Acute Assessment and Plan: Gentle IV fluid hydration, monitor (4) Asthma: Code(s): J45.909 - Unspecified asthma, uncomplicated Status: Acute Assessment and Plan: Does not appear to be in acute exacerbation, nebulizers as needed (5) Dehydration: Code(s): E86.0 - Dehydration Status: Acute Assessment and Plan: See above, stable (6) Elevated random blood glucose level: Code(s): R73.09 - Other abnormal glucose Status: Acute (7) : Code(s): Z34.90 - Encounter for supervision of normal , unspecified, unspecified trimester Status: Acute Assessment and Plan: Per OB, their note reviewed Plan DVT prophylaxis with SCDs GI prophylaxis not indicated Code status full code Subjective Date/time seen: 01/25/23 13:04 Interval history: 27-year-old female at approximately 15 weeks gestation with asthma who presented to the emergency department via private vehicle in the endoscopy rn hours for evaluation of cold symptoms and currently being treated for strep infection, community-acquired pneumonia, UTI. No overnight events noted. No chest pain or shortness of breath. No nausea, vomiting or diarrhea. No fevers or chills. Still quite weak, uncomfortable. Review of Systems Review of Systems: 12 point review of systems was assessed and was negative except as noted in the HPI Exam Narrative: General: No acute distress, alert and oriented per baseline HEENT: Atraumatic, normocephalic, mucous membranes moist CV: Regular rate and rhythm, S1, S2 Lungs: Clear to auscultation bilaterally, no rales or crackles noted, no wheezes, good air entry Abdomen: Soft, nontender, nondistended Extremities: Normal to inspection Skin: No rashes noted, no lesions or wounds seen Psych: Euthymic, normal affect Objective Data Vital Signs Vital Signs: Vital Signs - 24 hr 01/24/23 14:34 01/24/23 14:46 01/24/23 16:00 Temperature Pulse Rate 106 H 108 H 121 H Respiratory Rate 26 H 26 H Blood Pressure Pulse Oximetry Oxygen Delivery 01/24/23 14:00 01/24/23 20:09 01/24/23 20:25 Temperature 97.8 F Pulse Rate 97 98 100 Respiratory Rate 18 20 20 Blood Pressure 102/57 L Pulse Oximetry 97 Oxygen Delivery 01/24/23 22:00 01/24/23 20:00 01/24/23 20:05 Temperature 97.8 F Pulse Rate 99 Respiratory Rate 16 Blood Pressure 110/49 L 110/49 L 106/51 L Pulse Oximetry 99 Oxygen Delivery 01/24/23 20:10 01/24/23 20:00 01/25/23 02:24 Temperature Pulse Rate 102 H Respiratory Rate 20 Blood Pressure 105/52 L Pulse Oximetry 99 Oxygen Delivery Room Air 01/25/23 02:33 01/25/23 06:00 01/24/23 20:00 Temperature 97.0 F L Pulse Rate 101 H 99 96 Respiratory Rate 20 20 Blood Pressure 115/69 Pulse Oximetry 95 Oxygen Delivery 01/25/23 00:00 01/25/23 04:00 01/25/23 09:14 Temperature Pulse Rate 121 H 95 Respiratory Rate Blood Pressure Pulse Oximetry 97 Oxygen Delivery Room Air 01/25/23 09:14 01/25/23 09:31 Temperature Pulse Rate 96 101 H Respiratory Rate 20 20 Blood Pressure Pulse Oximetry Oxygen Delivery Intake/Output Intake/Output: Intake & Output 01/22/23 01/23/23
[2023-01-25] MEDS: ACETAMINOPHEN 500 MG TABLET 1000 MG PO ×2 (13:53→20:00)
[2023-01-25] MEDS: hydrOXYzine HCL 25 MG TABLET 50 MG PO (13:54)
[2023-01-25] MEDS: VANCOMYCIN 1,250 MG/NS 250 ML 1,250 MG/250 ML BAG 166.67 MG IVPB (13:54)
[2023-01-25] MEDS: FLUTICASONE PROPIONATE 0.05% NA SPR 16 GM BTL (*BKC) 1 SPRAY NASAL (13:54)
--- NOTE | 2023-01-25 14:08 | PC.NURSE ---
FHR with doppler 148 bpm.
[2023-01-25] MEDS: VANCOMYCIN 1,000 MG/NS 250 ML 1,000 MG/250 ML BAG 250 MG IVPB (15:50)
[2023-01-25] MEDS: cefTRIAXone 2 GM/NS 100 ML 2 GM/100 ML BAG IVPB (20:01)
[2023-01-25 20:31] LABS: MRSA (PCR) NOT DETECTED (NOT DETECTE)
[2023-01-26] VITALS (16 sets, daily range): BP systolic 104–114; BP diastolic 56–70; PULSE 86–110; RESP 14–20; TEMP 36.1–36.7; O2SAT 94–99
[2023-01-26] MEDS: IPRATROPIUM BR 0.02% INH SOLN 0.5 MG/2.5 ML VIAL INHALATION ×4 (02:25→19:55)
[2023-01-26] MEDS: ALBUTEROL SULFATE NEB 2.5 MG/3 ML INH INHALATION ×4 (02:25→19:53)
[2023-01-26] MEDS: ACETAMINOPHEN 500 MG TABLET 1000 MG PO ×4 (03:32→21:09)
[2023-01-26] MEDS: LACTATED RINGERS 1,000 ML 100 ML IV CONT ×3 (03:33→20:22)
--- NOTE | 2023-01-26 06:51 | PM.OBPNVD ---
OB - PN: Subj Subjective Date/time seen: 01/26/23 06:51 Interval history: Lisa is a 27yo @ 16.0 wks (RICH 07/13/23) admitted 01/24/23 with CAP HD#3 Feeling quite a bit better today. Afebrile, SOB/cough better today. Tolerating regular diet, denies N/V. Normal BM/voids. No vaginal discharge, bleeding. No pelvic pain. Feeling small flutters. OB - PN: Obj Data Labs 01/25/23 06:17 01/25/23 06:17 Labs: Laboratory Results - last 24 hr 01/25/23 01/25/23 06:17 18:59 WBC 9.0 RBC 2.94 L Hgb 8.8 L Hct 26.9 L MCV 91.5 MCH 29.9 MCHC 32.7 RDW 13.1 Plt Count 270 MPV 9.5 Sodium 135 L Potassium 3.4 Chloride 109 H Carbon Dioxide 19 L Anion Gap 7 L BUN 6 L Creatinine 0.40 L Estim Creat Clear Calc 169 Estimated GFR > 60 Glucose 101 Hemoglobin A1c 4.9 Calcium 8.4 Magnesium 2.0 Iron < 10 L TIBC 267 % Saturation 4 L Ferritin 147.00 H Nasal MRSA (PCR) Not detected OB - PN A/P Assessment and Plan (1) Community acquired pneumonia: Code(s): J18.9 - Pneumonia, unspecified organism Status: Acute Assessment and Plan: - hospitalist team to manage - currently on antibiotics: azithro, ceftriaxone, vanco - Blood cultures being repeat today; 1 positive for strep pneumonia on admission (2) : Qualifiers: Weeks of gestation: 16 weeks Qualified Code(s): Z3A.16 - 16 weeks gestation of Code(s): Z34.90 - Encounter for supervision of normal , unspecified, unspecified trimester Status: Acute Assessment and Plan: - Heart tones daily - Getting care w/ MFM but low risk, reports no issues this (has h/o x1) - Tylenol PRN pain - vitamin daily - Frequent snacking/hydration encouraged; compazine 5mg IV q6h PRN N/V - SCD's and lovenox 40sq daily for DVT prevention - Feel free to call OB if concerned about med safety in (3) Anemia affecting second : Code(s): O99.019 - Anemia complicating , unspecified trimester Status: Acute Assessment and Plan: - recommend venofer 500mg IV once due to iron deficiency Time Spent With Patient Time: Total time spent is greater than 50% in coordination of care (as documented) at patient's floor/unit and/or counseling patient: Review of Systems Constitutional: Constitutional: Denies chills and Denies fever(s) Cardiovascular: Cardiovascular: Denies chest pain and Denies rapid heart rate Respiratory: Respiratory: Reports cough, Denies hemoptysis and Denies dyspnea Gastrointestinal: Gastrointestinal: Denies heartburn, Denies nausea and Denies vomiting Genitourinary: Genitourinary: Denies abnormal vaginal bleeding and Denies vaginal discharge Musculoskeletal: Musculoskeletal: Denies back pain Neurologic: Denies dizziness and Denies headache(s) Psychiatric: Psychiatric: Denies anxiety Exam Const: General: cooperative and ill appearing Nutritional Appearance: obese Resp: Effort & Inspection: tachypneic Auscultation: clear to auscultation bilaterally Cardio: Rate: regular rate GI: Inspection: normal to inspection GI Palp: No abdominal tenderness and Yes Soft to palpation Auscultation: normal bowel sounds : Other: fundus soft, nontender FHTs: 145bpm Skin: General skin exam: normal color Neuro: General: patient oriented x3 Extrem: General: normal to inspection Psych: Appearance: grossly normal Affect: normal affect
[2023-01-26] MEDS: FLUTICASONE/SALMETEROL 115-21 MCG INHALER 1 PUFF 2 PUFF INHALATION ×2 (07:55→19:53)
[2023-01-26] MEDS: MULTIVIT/MIN/PREN/FOL AC/IRON TABLET 1 TAB PO (08:22)
[2023-01-26] MEDS: AZITHROMYCIN 250 MG TABLET 500 MG PO (08:22)
[2023-01-26] MEDS: FLUTICASONE PROPIONATE 0.05% NA SPR 16 GM BTL (*BKC) 1 SPRAY NASAL (08:23)
[2023-01-26] MEDS: hydrOXYzine HCL 25 MG TABLET 50 MG PO (08:27)
[2023-01-26] MEDS: ENOXAPARIN 40 MG/0.4 ML SYRINGE SUB-Q (08:27)
--- NOTE | 2023-01-26 11:25 | PM.IMPN ---
Progress Note: A&P Assessment and Plan (1) Community acquired pneumonia: Code(s): J18.9 - Pneumonia, unspecified organism Status: Acute Assessment and Plan: Continue Rocephin 2g, po azithromycin, initiated 01/24 Blood cultures came back positive for gram positive cocci, vancomycin initiated 01/25, bld cx positive s pneumo, vanc d/c Repeat blood cultures ordered 01/26 (2) Acute streptococcal pharyngitis: Code(s): J02.0 - Streptococcal pharyngitis Status: Acute Assessment and Plan: See above (3) Electrolyte abnormality: Code(s): E87.8 - Other disorders of electrolyte and fluid balance, not elsewhere classified Status: Acute Assessment and Plan: Gentle IV fluid hydration, monitor (4) Asthma: Code(s): J45.909 - Unspecified asthma, uncomplicated Status: Acute Assessment and Plan: Does not appear to be in acute exacerbation, nebulizers as needed (5) Dehydration: Code(s): E86.0 - Dehydration Status: Acute Assessment and Plan: See above, stable (6) Elevated random blood glucose level: Code(s): R73.09 - Other abnormal glucose Status: Acute (7) : Qualifiers: Weeks of gestation: 16 weeks Qualified Code(s): Z3A.16 - 16 weeks gestation of Code(s): Z34.90 - Encounter for supervision of normal , unspecified, unspecified trimester Status: Acute Assessment and Plan: Per OB, their note reviewed Plan DVT prophylaxis with SCDs GI prophylaxis not indicated Code status full code Subjective Date/time seen: 01/26/23 11:25 Interval history: 27-year-old female at approximately 15 weeks gestation with asthma who presented to the emergency department via private vehicle 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 No overnight events noted. No chest pain or shortness of breath. No nausea, vomiting or diarrhea. No fevers or chills. Feels much better today, still weak, decreased po intake. Review of Systems Review of Systems: 12 point review of systems was assessed and was negative except as noted in the HPI Exam Narrative: General: No acute distress, alert and oriented per baseline HEENT: Atraumatic, normocephalic, mucous membranes moist CV: Regular rate and rhythm, S1, S2 Lungs: Clear to auscultation bilaterally, no rales or crackles noted, no wheezes, good air entry Abdomen: Soft, nontender, nondistended Extremities: Normal to inspection Skin: No rashes noted, no lesions or wounds seen Psych: Euthymic, normal affect Objective Data Vital Signs Vital Signs: Vital Signs - 24 hr 01/25/23 12:00 01/25/23 14:00 01/25/23 15:05 Temperature 96.8 F L Pulse Rate 77 80 82 Respiratory Rate 21 H 20 Blood Pressure 99/61 L Pulse Oximetry 98 Oxygen Delivery Fraction of Inspired Oxygen 01/25/23 15:22 01/25/23 16:00 01/25/23 20:00 Temperature Pulse Rate 100 90 Respiratory Rate 20 Blood Pressure Pulse Oximetry Oxygen Delivery Room Air Fraction of Inspired Oxygen 01/25/23 21:02 01/25/23 22:00 01/25/23 20:00 Temperature 97.0 F L Pulse Rate 86 92 Respiratory Rate 20 16 Blood Pressure 99/57 L 92/49 L Pulse Oximetry 98 Oxygen Delivery Fraction of Inspired Oxygen 01/25/23 20:05 01/25/23 20:10 01/26/23 02:27 Temperature Pulse Rate 90 Respiratory Rate 20 Blood Pressure 99/57 L 102/59 L Pulse Oximetry Oxygen Delivery Fraction of Inspired Oxygen 01/25/23 20:00 01/26/23 00:00 01/26/23 04:00 Temperature Pulse Rate 85 100 100 Respiratory Rate Blood Pressure Pulse Oximetry Oxygen Delivery Fraction of Inspired Oxygen 01/26/23 06:00 01/26/23 07:55 01/26/23 07:55 Temperature 97.0 F L Pulse Rate 102 H 86 Respiratory
[2023-01-26 11:59] LABS: Basophils Percent Auto 0.3 % (0.2-1.2); Eosinophils Absolute Auto 0.1 K/mm3 (0-0.3); Hematocrit 26.2 % (37.0-47.0); Immature Granulocyte Absolute 0.07 K/mm3 (0.00-0.031); Lymphocytes Absolute Auto 1.31 K/mm3 (0.9-3.2); Lymphocytes Percent Auto 18.6 % (18.3-44.2); Mean Corpuscular HGB Conc 34.4 g/dl (32-36); Mean Corpuscular Hemoglobin 30.7 pg (26-34); Mean Corpuscular Volume 89.4 fl (80-100); Mean Platelet Volume 9.2 fl (7.4-10.4); Monocytes Absolute Auto 0.3 K/mm3 (0.1-0.6); Monocytes Percent Auto 4.7 % (2.6-8.5); Neutrophils Absolute Auto 5.2 K/mm3 (1.3-6.7); Neutrophils Percent Auto 73.4 % (45.5-73.1); Platelet Count Result 282 k/mm3 (150-375); Red Blood Count 2.93 M/mm3 (4.2-5.4); Red Cell Distribution Width 13.1 % (11.5-14.5)
[2023-01-26 12:11] LABS: Anion Gap 7 mmol/L (8-16); Blood Urea Nitrogen 5 mg/dL (7-17); Calcium 8.2 mg/dL (8.4-10.2); Carbon Dioxide 20 mmol/L (22-30); Chloride 109 mmol/L (98-107); Estimated CRCL calculation 215 ml/min; Estimated Glomerular Filt Rate > 60; Glucose 98 mg/dL (65-110); Potassium 3.2 mmol/L (3.4-5.0); Sodium 136 mmol/L (137-145)
[2023-01-26] MEDS: POTASSIUM CHLORIDE 20 MEQ ER TABLET 40 MEQ PO (14:04)
[2023-01-26] MEDS: cefTRIAXone 2 GM/NS 100 ML 2 GM/100 ML BAG IVPB (20:16)
[2023-01-27] VITALS (17 sets, daily range): BP systolic 102–118; BP diastolic 50–67; PULSE 80–98; RESP 16–18; TEMP 36.3–36.7; O2SAT 96–99
[2023-01-27] MEDS: IPRATROPIUM BR 0.02% INH SOLN 0.5 MG/2.5 ML VIAL INHALATION ×3 (02:33→14:11)
[2023-01-27] MEDS: ALBUTEROL SULFATE NEB 2.5 MG/3 ML INH INHALATION ×3 (02:33→14:11)
[2023-01-27] MEDS: ACETAMINOPHEN 500 MG TABLET 1000 MG PO ×3 (05:34→21:21)
[2023-01-27 06:22] LABS: Basophils Percent Auto 0.3 % (0.2-1.2); Eosinophils Absolute Auto 0.2 K/mm3 (0-0.3); Eosinophils Percent Auto 3.5 % (0-4.4); Hematocrit 28.1 % (37.0-47.0); Hemoglobin 9.5 g/dL (12.0-15.0); Immature Granulocyte Absolute 0.16 K/mm3 (0.00-0.031); Immature Granulocyte Percent A 2.6 % (0-0.5); Lymphocytes Absolute Auto 1.58 K/mm3 (0.9-3.2); Lymphocytes Percent Auto 25.2 % (18.3-44.2); Mean Corpuscular HGB Conc 33.8 g/dl (32-36); Mean Corpuscular Hemoglobin 30.4 pg (26-34); Mean Corpuscular Volume 90.1 fl (80-100); Mean Platelet Volume 9.2 fl (7.4-10.4); Monocytes Absolute Auto 0.4 K/mm3 (0.1-0.6); Monocytes Percent Auto 6.2 % (2.6-8.5); Neutrophils Absolute Auto 3.9 K/mm3 (1.3-6.7); Neutrophils Percent Auto 62.2 % (45.5-73.1); Platelet Count Result 325 k/mm3 (150-375); Red Blood Count 3.12 M/mm3 (4.2-5.4); Red Cell Distribution Width 12.9 % (11.5-14.5); White Blood Count 6.3 K/mm3 (4.5-10.0)
[2023-01-27 06:34] LABS: Alanine Aminotransferase 17 U/L (6-35); Albumin Level 2.8 g/dL (3.5-5.1); Alkaline Phosphatase 114 U/L (38-126); Anion Gap 9 mmol/L (8-16); Aspartate Amino Transferase 30 U/L (14-36); Bilirubin,Total 0.2 mg/dL (0.2-1.3); Blood Urea Nitrogen 6 mg/dL (7-17); Calcium 8.3 mg/dL (8.4-10.2); Carbon Dioxide 19 mmol/L (22-30); Chloride 108 mmol/L (98-107); Estimated CRCL calculation 169 ml/min; Estimated Glomerular Filt Rate > 60; Glucose 84 mg/dL (65-110); Potassium 3.6 mmol/L (3.4-5.0); Sodium 136 mmol/L (137-145)
--- NOTE | 2023-01-27 08:05 | PM.OBPNVD ---
OB - PN: Subj Subjective Date/time seen: 01/27/23 08:05 Interval history: Lisa is a 27yo @ 16.0 wks (RICH 07/13/23) admitted 01/24/23 with CAP HD#4 Pt resting comfortably in the bed. She continues to feel better clinically. She denies any abdominal pain, vaginal bleeding. She has no obstetric complaints. OB - PN: Obj Data Labs 01/27/23 05:20 01/27/23 05:20 Labs: Laboratory Results - last 24 hr 01/26/23 01/26/23 01/27/23 11:44 11:45 05:20 WBC 7.0 6.3 RBC 2.93 L 3.12 L Hgb 9.0 L 9.5 L Hct 26.2 L 28.1 L MCV 89.4 90.1 MCH 30.7 30.4 MCHC 34.4 33.8 RDW 13.1 12.9 Plt Count 282 325 MPV 9.2 9.2 Immature Gran % (Auto) 1.0 H 2.6 H Neut % (Auto) 73.4 H 62.2 Lymph % (Auto) 18.6 25.2 [place] % (Auto) 4.7 6.2 Eos % (Auto) 2.0 3.5 Baso % (Auto) 0.3 0.3 Lymph # (Auto) 1.31 1.58 [place] # (Auto) 0.3 0.4 Eos # (Auto) 0.1 0.2 Baso # (Auto) 0.0 0.0 Abs Immat Gran (auto) 0.07 H 0.16 H Absolute Neuts (auto) 5.2 3.9 Absolute Nucleated RBC 0.0 0.0 Nucleated RBC % 0.0 0.0 Sodium 136 L 136 L Potassium 3.2 L 3.6 Chloride 109 H 108 H Carbon Dioxide 20 L 19 L Anion Gap 7 L 9 BUN 5 L 6 L Creatinine 0.30 L 0.40 L Estim Creat Clear Calc 215 169 Estimated GFR > 60 > 60 Glucose 98 84 Calcium 8.2 L 8.3 L Total Bilirubin 0.2 AST 30 ALT 17 Alkaline Phosphatase 114 Total Protein 6.0 L Albumin 2.8 L OB - PN A/P Assessment and Plan (1) Community acquired pneumonia: Code(s): J18.9 - Pneumonia, unspecified organism Status: Acute Assessment and Plan: - hospitalist team to manage - currently on antibiotics: azithro, ceftriaxone. s/p vanco - Repeat blood cultures pending (2) : Qualifiers: Weeks of gestation: 16 weeks Qualified Code(s): Z3A.16 - 16 weeks gestation of Code(s): Z34.90 - Encounter for supervision of normal , unspecified, unspecified trimester Status: Acute Assessment and Plan: - Heart tones daily - Getting care w/ MFM but low risk, reports no issues this (has h/o x1) - Tylenol PRN pain - vitamin daily - Frequent snacking/hydration encouraged; compazine 5mg IV q6h PRN N/V - SCD's and lovenox 40sq daily for DVT prevention - Feel free to call OB if concerned about med safety in (3) Anemia affecting second : Code(s): O99.019 - Anemia complicating , unspecified trimester Status: Acute Time Spent With Patient Time: Total time spent is greater than 50% in coordination of care (as documented) at patient's floor/unit and/or counseling patient: Review of Systems Review of Systems: All systems reviewed & are unremarkable except as noted in HPI and below Exam Const: General: cooperative, comfortable and no acute distress Nutritional Appearance: obese Resp: Auscultation: clear to auscultation bilaterally Cardio: Rate: regular rate GI: Inspection: normal to inspection GI Palp: No abdominal tenderness and Yes Soft to palpation Auscultation: normal bowel sounds Skin: General skin exam: normal color Neuro: General: patient oriented x3 Extrem: General: normal to inspection Psych: Appearance: grossly normal Affect: normal affect
[2023-01-27] MEDS: FLUTICASONE/SALMETEROL 115-21 MCG INHALER 1 PUFF 2 PUFF INHALATION ×2 (08:22→21:42)
[2023-01-27] MEDS: ENOXAPARIN 40 MG/0.4 ML SYRINGE SUB-Q (08:48)
[2023-01-27] MEDS: AZITHROMYCIN 250 MG TABLET 500 MG PO (08:49)
[2023-01-27] MEDS: MULTIVIT/MIN/PREN/FOL AC/IRON TABLET 1 TAB PO (08:49)
[2023-01-27] MEDS: FLUTICASONE PROPIONATE 0.05% NA SPR 16 GM BTL (*BKC) 1 SPRAY NASAL (12:12)
--- NOTE | 2023-01-27 15:17 | PM.IMPN ---
Progress Note: A&P Assessment and Plan (1) Community acquired pneumonia: Code(s): J18.9 - Pneumonia, unspecified organism Status: Acute Assessment and Plan: Patient presents with cold symptoms, fever, cough. CXR showing bibasilar airspace disease Cultures obtained and started on abx BCx 01/24: Strep Pneumoniae in one aerobic bottle only. UCx 01/24: Negative Sputum Cx 01/24: pending BCx 01/26: NGTD Vancomycin initiated 01/25 when positive BCx but stopped now. Remains on Rocephin 2gm. Follow-up sensitivities of blood culture Home tomorrow if the 2nd set of blood culture remains negative for 2 days. (2) Acute streptococcal pharyngitis: Code(s): J02.0 - Streptococcal pharyngitis Status: Acute Assessment and Plan: Group a strep PCR was positive on 01/24/2023. Treatment as above. (3) Electrolyte abnormality: Code(s): E87.8 - Other disorders of electrolyte and fluid balance, not elsewhere classified Status: Acute Assessment and Plan: Patient with mild hyponatremia. With IV fluids, sodium has improved to 136. She has persistent non gap metabolic acidosis possibly related to the diarrhea that she is having. Potassium was low yesterday but this has been replaced. Stop IV fluids. Monitor stool output. (4) Asthma: Code(s): J45.909 - Unspecified asthma, uncomplicated Status: Acute Assessment and Plan: Does not appear to be in acute exacerbation Change nebulizer treatments to p.r.n.. (5) Dehydration: Code(s): E86.0 - Dehydration Status: Acute Assessment and Plan: As above. Resolved. (6) Elevated random blood glucose level: Code(s): R73.09 - Other abnormal glucose Status: Acute Assessment and Plan: Brain and glucose was elevated but hemoglobin A1c was 4.9%. Leukocytosis morning 84. Continue to follow (7) : Qualifiers: Weeks of gestation: 16 weeks Qualified Code(s): Z3A.16 - 16 weeks gestation of Code(s): Z34.90 - Encounter for supervision of normal , unspecified, unspecified trimester Status: Acute Assessment and Plan: Patient for with IUP with a gestational age of 15 weeks. Ob consulted and appreciate their input. (8) Iron deficiency anemia: Code(s): D50.9 - Iron deficiency anemia, unspecified Status: Acute Assessment and Plan: Iron studies consistent with significant iron deficiency anemia. Ferritin is elevated but probably more acute phase reactant. Continue vitamins with iron. 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 Chart reviewed. Patient having liquid stools about 3-4 times today. Started last night. She is also having abdominal cramping today. Nausea or vomiting. Eating normally. Walking in room. Feels better overall. Exam Narrative: AF 97.3 112/50 98 18 98% ra Gen - NARD Chest - CTA bilaterally, nml RR CV - RRR S1/S2. no murmur Abd - Soft, NT/ND, Positive BS Ext - No pedal edema Psych - Nml mood and affect Skin - Warm and dry Objective Data Vital Signs Vital Signs: Vital Signs - 24 hr 01/26/23 16:00 01/26/23 19:55 01/26/23 19:56 Temperature Pulse Rate 103 H 89 Respiratory Rate 18 Blood Pressure Pulse Oximetry 96 Oxygen Delivery Room Air Fraction of Inspired Oxygen 01/26/23 21:53 01/27/23 00:00 01/26/23 20:00 Temperature 98.0 F Pulse Rate 107 H 92 87 Respiratory Rate 18 Blood Pressure 114/64 Pulse Oximetry 99 Ox
[2023-01-27] MEDS: hydrOXYzine HCL 25 MG TABLET 50 MG PO (21:21)
[2023-01-27] MEDS: cefTRIAXone 2 GM/NS 100 ML 2 GM/100 ML BAG IVPB (21:23)
[2023-01-27] MEDS: SODIUM CHLORIDE 0.9% IV 250 ML (21:26)
[2023-01-28 05:10] VITALS: BP 113/62; PULSE 96; RESP 17; TEMP 36.6; O2SAT 96
[2023-01-28] MEDS: ACETAMINOPHEN 500 MG TABLET 1000 MG PO ×2 (05:45→11:24)
[2023-01-28 06:28] LABS: Basophils Absolute Auto 0.1 K/mm3 (0.0-0.1); Basophils Percent Auto 0.7 % (0.2-1.2); Eosinophils Absolute Auto 0.3 K/mm3 (0-0.3); Eosinophils Percent Auto 4.4 % (0-4.4); Hematocrit 29.2 % (37.0-47.0); Hemoglobin 9.9 g/dL (12.0-15.0); Immature Granulocyte Absolute 0.32 K/mm3 (0.00-0.031); Immature Granulocyte Percent A 4.7 % (0-0.5); Lymphocytes Absolute Auto 1.75 K/mm3 (0.9-3.2); Lymphocytes Percent Auto 25.5 % (18.3-44.2); Mean Corpuscular HGB Conc 33.9 g/dl (32-36); Mean Corpuscular Hemoglobin 30.2 pg (26-34); Mean Platelet Volume 9.1 fl (7.4-10.4); Monocytes Absolute Auto 0.5 K/mm3 (0.1-0.6); Monocytes Percent Auto 6.7 % (2.6-8.5); Nucleated Red Blood Cells Perc 0.4 % (0.0-0.2); Platelet Count Result 378 k/mm3 (150-375); Red Blood Count 3.28 M/mm3 (4.2-5.4); Red Cell Distribution Width 12.6 % (11.5-14.5); White Blood Count 6.9 K/mm3 (4.5-10.0)
[2023-01-28 06:41] LABS: Alanine Aminotransferase 18 U/L (6-35); Albumin Level 3.1 g/dL (3.5-5.1); Alkaline Phosphatase 118 U/L (38-126); Anion Gap 5 mmol/L (8-16); Aspartate Amino Transferase 31 U/L (14-36); Bilirubin,Total 0.3 mg/dL (0.2-1.3); Blood Urea Nitrogen 4 mg/dL (7-17); Calcium 8.7 mg/dL (8.4-10.2); Carbon Dioxide 23 mmol/L (22-30); Chloride 105 mmol/L (98-107); Estimated CRCL calculation 169 ml/min; Estimated Glomerular Filt Rate > 60; Glucose 73 mg/dL (65-110); Potassium 3.6 mmol/L (3.4-5.0); Sodium 133 mmol/L (137-145)
[2023-01-28 06:59] LABS: Pneumococcal Antigen Urine Not Detected (Not Detected)
[2023-01-28] MEDS: FLUTICASONE/SALMETEROL 115-21 MCG INHALER 1 PUFF 2 PUFF INHALATION (09:19)
[2023-01-28] MEDS: AZITHROMYCIN 250 MG TABLET 500 MG PO (09:24)
[2023-01-28] MEDS: ENOXAPARIN 40 MG/0.4 ML SYRINGE SUB-Q (09:24)
[2023-01-28] MEDS: MULTIVIT/MIN/PREN/FOL AC/IRON TABLET 1 TAB PO (09:25)
[2023-01-28] MEDS: FLUTICASONE PROPIONATE 0.05% NA SPR 16 GM BTL (*BKC) 1 SPRAY NASAL (09:25)
--- NOTE | 2023-01-28 10:43 | PM.OBPNVD ---
OB - PN: Subj Subjective Date/time seen: 01/28/23 10:43 Interval history: Interval history: Lisa is a 27yo @ 16.1 wks (RICH 07/13/23) admitted 01/24/23 with CAP HD#5 Pt sleeping this morning. She continues to feel better clinically.? She denies any abdominal pain, vaginal bleeding. She has no obstetric complaints. OB - PN: Obj Data Labs 01/28/23 05:30 01/28/23 05:30 Labs: Laboratory Results - last 24 hr 01/24/23 01/24/23 01/28/23 14:31 18:29 05:30 WBC 6.9 RBC 3.28 L Hgb 9.9 L Hct 29.2 L MCV 89.0 MCH 30.2 MCHC 33.9 RDW 12.6 Plt Count 378 H MPV 9.1 Immature Gran % (Auto) 4.7 H Neut % (Auto) 58.0 Lymph % (Auto) 25.5 [place] % (Auto) 6.7 Eos % (Auto) 4.4 Baso % (Auto) 0.7 Lymph # (Auto) 1.75 [place] # (Auto) 0.5 Eos # (Auto) 0.3 Baso # (Auto) 0.1 Abs Immat Gran (auto) 0.32 H Absolute Neuts (auto) 4.0 Absolute Nucleated RBC 0.0 Nucleated RBC % 0.4 H Sodium 133 L Potassium 3.6 Chloride 105 Carbon Dioxide 23 Anion Gap 5 L BUN 4 L Creatinine 0.40 L Estim Creat Clear Calc 169 Estimated GFR > 60 Glucose 73 Serum Osmolality 274 L Calcium 8.7 Total Bilirubin 0.3 AST 31 ALT 18 Alkaline Phosphatase 118 Total Protein 6.0 L Albumin 3.1 L Urine Pneumococcal Ag Not detected OB - PN A/P Assessment and Plan (1) Community acquired pneumonia: Code(s): J18.9 - Pneumonia, unspecified organism Status: Acute Assessment and Plan: management per hosptialist team patient clinically stable Patient states her symptoms have improved Patient continues antibiotics Second round of blood cultures are pending. (2) : Qualifiers: Weeks of gestation: 16 weeks Qualified Code(s): Z3A.16 - 16 weeks gestation of Code(s): Z34.90 - Encounter for supervision of normal , unspecified, unspecified trimester Status: Acute Assessment and Plan: - Heart tones daily - Getting care w/ MFM but low risk, reports no issues this (has h/o x1) - Tylenol PRN pain - vitamin daily - Frequent snacking/hydration encouraged; compazine 5mg IV q6h PRN N/V - SCD's and lovenox 40sq daily for DVT prevention - Feel free to call OB if concerned about med safety in Time Spent With Patient Time: Total time spent is greater than 50% in coordination of care (as documented) at patient's floor/unit and/or counseling patient:
[2023-01-28 13:09] LABS: Mycoplasma IgM Antibody Titer 77 U/mL (<770)
--- NOTE | 2023-01-28 13:09 | PCCCNOTE ---
On 01/28/23, the student, [Mónica Bal], provided care and completed [facility] documentation on this patient. I have reviewed the student's documentation and agree with the findings.
[2023-01-28 14:00] VITALS: BP 108/58; PULSE 86; RESP 16; TEMP 36.7; O2SAT 98
--- NOTE | 2023-01-28 14:56 | PC.NURSE ---
pt states she is having very small amount of diarrhea. pt states she has diarrhea about once an hour. pt denies n/v. denies mucus in stool.denies any foul smelling stool. aware
--- NOTE | 2023-01-28 15:25 | PM.DS ---
DS: Admitting Diagnosis Discharge Date 01/28/23 Admitting Diagnosis Cold symptoms DS: Discharge Diagnosis Discharge Diagnosis (1) Community acquired pneumonia: Code(s): J18.9 - Pneumonia, unspecified organism Status: Acute (2) Acute streptococcal pharyngitis: Code(s): J02.0 - Streptococcal pharyngitis Status: Acute (3) Electrolyte abnormality: Code(s): E87.8 - Other disorders of electrolyte and fluid balance, not elsewhere classified Status: Acute (4) Asthma: Code(s): J45.909 - Unspecified asthma, uncomplicated Status: Acute (5) Dehydration: Code(s): E86.0 - Dehydration Status: Acute (6) Elevated random blood glucose level: Code(s): R73.09 - Other abnormal glucose Status: Acute (7) : Qualifiers: Weeks of gestation: 16 weeks Qualified Code(s): Z3A.16 - 16 weeks gestation of Code(s): Z34.90 - Encounter for supervision of normal , unspecified, unspecified trimester Status: Acute (8) Iron deficiency anemia: Code(s): D50.9 - Iron deficiency anemia, unspecified Status: Acute DS: Summary Hospital Course Reason for hospitalization: 27yo female at approximately 15 weeks gestation with asthma who presented to the emergency department via private vehicle 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 Please see H&P for details. Hospital Course: Patient presents with cold symptoms, fever, cough. CXR showing bibasilar airspace disease. Cultures obtained and started on abx. BCx 01/24: Strep Pneumoniae in one aerobic bottle only. UCx 01/24: Negative. Sputum Cx 01/24: negative. Repeat BCx 01/26: NGTD. Vancomycin initiated 01/25 when positive BCx but stopped once result known. Continued on Rocephin 2gm.? Follow-up sensitivities of blood cultures showing sensitive to PCN. Group A strep PCR was positive on 01/24/2023.? Patient with mild hyponatremia.? With IV fluids, sodium improved.? She had a persistent non gap metabolic acidosis possibly related to the diarrhea but this has resolved. She was having frequent, small volume stools. CDiff felt less likely. She states the loose stools are manageable. She had an elevated random blood glucose level. Hgb A1c was 4.9%. Morning glucose was 73. Patient for with IUP with a gestational age of 15 weeks. Ob consulted and appreciate their input. Iron studies consistent with significant iron deficiency anemia.? Ferritin is elevated but probably more acute phase reactant. We continued vitamins with iron. Discussed with PharmD ID who recommended cefdinir. She overall did well and was able to be discharged home on 01/28/23. Status at Discharge Cognitive/behavioral status at discharge: stable Time Spent with Patient Time attestation: Total time spent providing and/or coordinating discharge services: 35 minutes Time spent: Greater than 30 minutes Exam Narrative: AF 98.0 108/58 86 16 98% ra Gen - NARD Chest - decreased BS in the bases o/w clear. nml RR CV - RRR S1/S2 Abd - Soft, NT/ND, Positive BS Ext - No pedal edema Psych - Nml mood and affect Skin - Warm and dry DS: Data Data Completed and Pending Labs on day of discharge: Labs from last 24 hours 01/28/23 01/24/23 01/24/23 05:30 18:29 14:31 WBC 6.9 RBC 3.28 L Hgb 9.9 L Hct 29.2 L MCV 89.0 MCH 30.2 MCHC 33.9 RDW 12.6 Plt Count 378 H MPV 9.1 Immature Gran % (Auto) 4.7 H Neut % (Auto) 58.0 Lymph % (Auto) 25.5 [place] % (Auto) 6.7 Eos % (Auto) 4.4 Baso % (Auto) 0.7 Lymph # (Auto) 1.75 [place] # (Auto) 0.5 Eos # (Auto) 0.3 Baso # (Auto) 0.1 Abs Immat Gran (auto) 0.32 H Absolute Neuts (auto) 4.0 Absolute Nucleated RBC 0.0 Nucleated RBC % 0.4 H Sodium 133 L Potassium 3.6 Chl
[2023-01-29 03:30] LABS: Legionella pneumophila Ag Ur Not Detected (Not Detected)
[2023-01-30 23:49] LABS: Osmolality, Urine 727 mOsm/kg (50-1200)
--- NOTE | 2023-02-03 12:53 | PC.NURSE ---
Urine legionella is not detected. Dr. Venita gonzalez.
== END 2023-01-28 16:45 | disposition home or self-care (01) | DRG 566 ==
LOC: ANHED 06:50 → ANH3MEDSUR 10:50
PROVIDERS: Obstetrics & Gynecology; Physician Assistant; Admitting Provider Student in an Organized Health Care Education/Training Program; Emergency Provider Emergency Medicine; PCP Physician Assistant; Visit Provider Student in an Organized Health Care Education/Training Program
DX: O99.512 Diseases of the respiratory system complicating pregnancy, second trimester (principal); Z3A.15 15 weeks gestation of pregnancy; J18.9 Pneumonia, unspecified organism; J02.0 Streptococcal pharyngitis; R78.81 Bacteremia; B95.3 Streptococcus pneumoniae as the cause of diseases classified elsewhere; E87.8 Other disorders of electrolyte and fluid balance, not elsewhere classified; J45.909 Unspecified asthma, uncomplicated; O99.282 Endocrine, nutritional and metabolic diseases complicating pregnancy, second trimester; E87.1 Hypo-osmolality and hyponatremia; E86.0 Dehydration; E87.21 Acute metabolic acidosis; E87.6 Hypokalemia; O99.810 Abnormal glucose complicating pregnancy; R19.7 Diarrhea, unspecified; O99.012 Anemia complicating pregnancy, second trimester; D50.9 Iron deficiency anemia, unspecified; Z20.822 Contact with and (suspected) exposure to COVID-19; O99.891 Other specified diseases and conditions complicating pregnancy; M79.7 Fibromyalgia
CPT/HCPCS: 36415; 71045; 80048; 80053; 81001; 82570; 82728; 83036; 83540; 83550; 83605; 83735; 83880; 83930; 83935; 84145; 84300; 84443; 84484; 85025; 85027; 85610; 85730; 86140; 86738; 87040; 87070; 87086; 87147; 87181; 87186; 87205; 87449; 87637; 87641; 87651; 87899; 93005; 94640; 96361; 96365; 96372; 96374; 96375; 99285; A9270; G0378; G0379; J0295; J0456; J0696; J1650; J2270; J2405; J3370; J3480; J7030; J7050; J7120

== ENCOUNTER 2023-03-04 13:40 | Emergency (ER) | payer BC, SELFPAY ==
[2023-03-04 13:57] VITALS: BP 115/67; PULSE 93; RESP 16; TEMP 36.6; O2SAT 98
--- NOTE | 2023-03-04 13:57 | ED.FEMALEGU ---
HPI - Female Genitourinary General Chief complaint: Urogenital-Female Stated complaint: Uti symptoms Time Seen by Provider: 03/04/23 13:58 Source: patient, RN notes reviewed and old records reviewed Mode of arrival: ambulatory Limitations: no limitations History of Present Illness HPI Narrative: 27-year-old female presents to the [facility] with bladder discomfort. Patient states that started a couple of days ago. Patient reports history of interstitial cystitis. Patient is 21 weeks , did not contact Ob Onset (ago): day(s) Patient : Yes (21 weeks) Related Data Home Medications Medication Instructions Recorded Confirmed albuterol sulfate 90 mcg/actuation 2 inh inhalation QID PRN shortness 01/24/23 01/24/23 aerosol inhaler of breath or wheezing budesonide-formoterol HFA 160 2 puff inhalation BID 01/24/23 01/24/23 mcg-4.5 mcg/actuation aerosol inhaler (Symbicort) escitalopram oxalate 20 mg tablet 20 mg PO HS 01/24/23 01/24/23 fluticasone propionate 50 1 spray intranasal DAILY 01/24/23 01/24/23 mcg/actuation nasal spray,suspension vit no.95-ferrous 1 tablet PO DAILY 01/24/23 01/24/23 fumarate 28 mg-folic acid 800 mcg tablet () Allergies Allergy/AdvReac Type Severity Reaction Status Date / Time No Known Allergies Allergy Verified 01/24/23 03:15 Review of Systems Review of Systems: All systems reviewed & are unremarkable except as noted in HPI and below Constitutional: Constitutional: Reports no additional constitutional complaints Eyes: Eyes: Reports no additional eye complaints ENT: Reports system reviewed and no additional complaints, except as documented Cardiovascular: Cardiovascular: Reports no additional cardiovascular complaints, Denies chest pain and Denies dyspnea Respiratory: Respiratory: Reports no additional respiratory complaints, Denies chest congestion, Denies cough and Denies dyspnea Gastrointestinal: Gastrointestinal: Reports no additional gastrointestinal complaints, Denies abdominal pain, Denies nausea and Denies vomiting Genitourinary: Genitourinary: Reports as per HPI Musculoskeletal: Musculoskeletal: Reports no additional musculoskeletal complaints Integumentary/Breasts: Skin/Breast: Reports system reviewed and no additional complaints, except as docu Neurologic: Reports system reviewed and no additional complaints, except as documented Psychiatric: Psychiatric: Reports no additional psychiatric complaints Allergic/Immunologic: Allergic/Immunologic: Reports no additional allergic/immunologic complaints [facility] Past Medical History Medical History Anxiety Asthma Fibromyalgia Interstitial cystitis Surgical History Surgical History History of (10/06/17) Family History Family History Other No pertinent family history in first degree relatives Social History Social History Social History: Surrogate medical decision maker: Derrick Montalvo, father. Code status: Full code. Smoking status: Never smoker Second hand tobacco smoke exposure: No Alcohol intake: former Alcohol use details: Rare alcohol use in moderation. 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
--- NOTE | 2023-03-04 15:48 | PC.NURSE ---
1400 FHTs checked by provider-120s noted to lower abdomen.
== END 2023-03-04 14:18 | disposition home or self-care (01) ==
PROVIDERS: Emergency Provider Nurse Practitioner; PCP Physician Assistant
DX: O26.892 Other specified pregnancy related conditions, second trimester (principal); R30.0 Dysuria; Z3A.21 21 weeks gestation of pregnancy
CPT/HCPCS: 81003; 87086; 99213; G0463

== ENCOUNTER 2023-05-04 09:48 | Emergency (ER) | payer BC, SELFPAY ==
[2023-05-04 09:57] VITALS: BP 100/76; PULSE 95; RESP 20; TEMP 36.1; O2SAT 99
--- NOTE | 2023-05-04 09:59 | ED.URI ---
HPI - URI/Sore Throat General Chief Complaint: Upper Respiratory Infection Stated Complaint: Headache/Sore Throat/Congestion History of Present Illness HPI Narrative: 27 y/o female presented for c/o cough, sinus congestion and pressure x1 week. Cough is productive of green sputum at times and endorses sob with exertion. Cough is forceful and caused her to vomit this morning. Hx asthma, states she usually gets a steroid, but is aware she will not take it during . Takes daily zyrtec and Symbicort, and has used albuterol inhaler the past few days. Was at [facility] this morning, was told symptoms are likely mary. Pt reports normal movement. Hx strep, pneumonia, UTI, leading to sepsis early in this and is concerned for this again. Pt is 30 weeks gestation. Related Data Home Medications Medication Instructions Recorded Confirmed albuterol sulfate 90 mcg/actuation 2 inh inhalation QID PRN shortness 01/24/23 05/04/23 aerosol inhaler of breath or wheezing budesonide-formoterol HFA 160 2 puff inhalation BID 01/24/23 05/04/23 mcg-4.5 mcg/actuation aerosol inhaler (Symbicort) escitalopram oxalate 20 mg tablet 20 mg PO HS 01/24/23 05/04/23 fluticasone propionate 50 1 spray intranasal DAILY 01/24/23 05/04/23 mcg/actuation nasal spray,suspension vit no.95-ferrous 1 tablet PO DAILY 01/24/23 05/04/23 fumarate 28 mg-folic acid 800 mcg tablet () gabapentin 400 mg capsule 400 mg PO DIRECTED 05/04/23 05/04/23 Allergies Allergy/AdvReac Type Severity Reaction Status Date / Time No Known Allergies Allergy Verified 05/04/23 10:17 Review of Systems Review of Systems: CONSTITUTIONAL: Denies body aches, fever, chills, or sweats. EYES: Denies visual changes, redness, or discharge. ENT: reports sore throat, rhinorrhea, congestion, denies otalgia. CARDIOVASCULAR: Denies chest pain, palpitations, or edema. RESPIRATORY: reports cough dyspnea with exertion. GASTROINTESTINAL: Denies abdominal pain, nausea, vomiting, or diarrhea. SKIN: Denies rash, itching, or wounds. MUSCULOSKELETAL: Denies back pain, joint pain, or myalgia. NEUROLOGIC: Reports headache PMFSH Past Medical History Medical History Anxiety Asthma Fibromyalgia Interstitial cystitis Surgical History Surgical History History of (10/06/17) Family History Family History Other No pertinent family history in first degree relatives Social History Social History Social History: Surrogate medical decision maker: Derrick Montalvo, father. Code status: Full code. Smoking status: Never smoker Second hand tobacco smoke exposure: No Alcohol intake: former Alcohol use details: Rare alcohol use in moderation. 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 EYES: conjunctivae clear ENT: Mucous membranes moist. TMs pearly chahal with normal light reflex bilaterally; no tragal tenderness. Oropharynx not erythematous without lesions. No drooling, no hoarseness, no trismus, uvula midline. No tripod positioning, hot potato voice, or soft palate swelling
== END 2023-05-04 10:48 | disposition home or self-care (01) ==
PROVIDERS: Emergency Provider Nurse Practitioner Family; PCP Physician Assistant
DX: J45.901 Unspecified asthma with (acute) exacerbation (principal); Z20.822 Contact with and (suspected) exposure to COVID-19; J45.909 Unspecified asthma, uncomplicated; M79.7 Fibromyalgia; F41.9 Anxiety disorder, unspecified
CPT/HCPCS: 87081; 87426; 87804; 87880; 99213; G0463

== ENCOUNTER 2023-09-30 15:59 | Emergency (ER) | payer BC, SELFPAY ==
[2023-09-30 16:16] VITALS: BP 111/73; PULSE 96; RESP 16; TEMP 36.6; O2SAT 99
[2023-09-30 16:18] VITALS: BP 111/73; PULSE 96; RESP 16; TEMP 36.6; O2SAT 99
[2023-09-30 16:28] LABS: EDSTREPNEGPOS1 Positive
--- NOTE | 2023-09-30 16:31 | ED.URI ---
HPI - URI/Sore Throat General Chief Complaint: Upper Respiratory Infection Stated Complaint: SORE THROAT Time Seen by Provider: 09/30/23 16:28 Source: patient, RN notes reviewed and old records reviewed Mode of arrival: ambulatory Limitations: no limitations History of Present Illness HPI Narrative: 27-year-old [facility] to [facility] for complaint of sore throat and mild headache that started overnight. 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 Patient reports of that pain is worse with swallowing. Patient attempted to treat at home with Tylenol this morning. Patient denies fever, shortness of breath, difficulty swallowing, allergies. Patient reports having strep Darryn. patient able to tolerate fluids by mouth. Respirations even and nonlabored. Patient in no acute distress. Related Data Home Medications Medication Instructions Recorded Confirmed albuterol sulfate 90 mcg/actuation 2 inh inhalation QID PRN shortness 01/24/23 09/30/23 aerosol inhaler of breath or wheezing budesonide-formoterol HFA 160 2 puff inhalation BID 01/24/23 09/30/23 mcg-4.5 mcg/actuation aerosol inhaler (Symbicort) escitalopram oxalate 20 mg tablet 20 mg PO HS 01/24/23 09/30/23 fluticasone propionate 50 1 spray intranasal DAILY 01/24/23 09/30/23 mcg/actuation nasal spray,suspension vit no.95-ferrous 1 tablet PO DAILY 01/24/23 09/30/23 fumarate 28 mg-folic acid 800 mcg tablet () gabapentin 400 mg capsule 400 mg PO DIRECTED 05/04/23 09/30/23 Allergies Allergy/AdvReac Type Severity Reaction Status Date / Time No Known Allergies Allergy Verified 09/30/23 16:17 Review of Systems Review of Systems: All systems reviewed & are unremarkable except as noted in HPI and below Constitutional: Constitutional: Reports as per HPI and Reports headache(s) Eyes: Eyes: Reports no additional eye complaints ENT: Reports as per HPI and Reports sore throat Cardiovascular: Cardiovascular: Reports no additional cardiovascular complaints, Denies chest pain and Denies dyspnea Respiratory: Respiratory: Reports no additional respiratory complaints, Denies cough and Denies dyspnea Musculoskeletal: Musculoskeletal: Reports no additional musculoskeletal complaints Neurologic: Reports system reviewed and no additional complaints, except as documented Psychiatric: Psychiatric: Reports no additional psychiatric complaints PMFSH Past Medical History Medical History Anxiety Asthma Fibromyalgia Interstitial cystitis Surgical History Surgical History History of (10/06/17) Family History Family History Other No pertinent family history in first degree relatives Social History Social History Social History: Surrogate medical decision maker: Derrick Montalvo, father. Code status: Full code. Smoking status: Never smoker Second hand tobacco smoke exposure: No Alcohol intake: former Alcohol use details: Rare alcohol use in moderation. 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
== END 2023-09-30 16:45 | disposition home or self-care (01) ==
PROVIDERS: Emergency Provider Nurse Practitioner Family; PCP Physician Assistant
DX: J02.0 Streptococcal pharyngitis (principal); J45.909 Unspecified asthma, uncomplicated; M79.7 Fibromyalgia; F41.9 Anxiety disorder, unspecified
CPT/HCPCS: 87081; 87880; 99213; G0463

== ENCOUNTER 2024-03-21 12:44 | Emergency (ER) | payer BC, SELFPAY ==
--- NOTE | 2024-03-21 12:47 | ED.URI ---
HPI - URI/Sore Throat General Chief Complaint: Upper Respiratory Infection Stated Complaint: Upper Respiratory Symptoms Source: patient and RN notes reviewed Mode of arrival: ambulatory Limitations: no limitations History of Present Illness HPI Narrative: Patient is a 28-year-old female who presents to the [facility] with complaints of sore throat, congestion, and cough since Wednesday. Patient also endorses generalized body aches and increased fatigue. She reports a frequent nonproductive cough. States that the coughing congestion or exacerbating her asthma. She has had increased wheezing. She denies known fevers. 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 Related Data Home Medications ?Medication ?Instructions ?Recorded ?Confirmed ?Last Taken ?Type albuterol sulfate 90 mcg/actuation 2 inh inhalation QID PRN shortness 01/24/23 03/21/24 01/24/23 02:00 History aerosol inhaler of breath or wheezing budesonide-formoterol HFA 160 2 puff inhalation BID 01/24/23 03/21/24 01/23/23 21:00 History mcg-4.5 mcg/actuation aerosol inhaler (Symbicort) escitalopram oxalate 20 mg tablet 20 mg PO HS 01/24/23 03/21/24 01/23/23 21:00 History fluticasone propionate 50 1 spray intranasal DAILY 01/24/23 03/21/24 01/23/23 08:00 History mcg/actuation nasal spray,suspension vit no.95-ferrous 1 tablet PO DAILY 01/24/23 03/21/24 01/23/23 21:00 History fumarate 28 mg-folic acid 800 mcg tablet () gabapentin 400 mg capsule 400 mg PO DIRECTED 05/04/23 03/21/24 Unknown History buspirone 5 mg tablet 10 mg PO DAILY 03/21/24 03/21/24 Unknown History Allergies Allergy/AdvReac Type Severity Reaction Status Date / Time No Known Allergies Allergy Verified 03/21/24 12:52 Review of Systems Review of Systems: CONSTITUTIONAL: Denies fever, chills, or sweats. EYES: Denies visual changes, redness, or discharge. ENT: Denies otalgia. Reports sore throat and congestion. CARDIOVASCULAR: Denies chest pain, palpitations, or edema. RESPIRATORY: Reports cough and dyspnea. GASTROINTESTINAL: Denies abdominal pain, nausea, vomiting, or diarrhea. GENITOURINARY: Denies dysuria or hematuria. SKIN: Denies rash or itching. MUSCULOSKELETAL: Denies back pain, joint pain, but reports myalgia. NEUROLOGIC: Reports headache but denies numbness. or weakness. Pertinent positives per HPI. [facility] Past Medical History Medical History Anxiety Fibromyalgia Interstitial cystitis Asthma Surgical History Surgical History History of (10/06/17) Family History Family History Other No pertinent family history in first degree relatives Social History Social History Social History: Surrogate medical decision maker: Derrick Montalvo, father. Code status: Full code. Smoking status: Never smoker Second hand tobacco smoke exposure: No Alcohol intake: former Alcohol use details: Rare alcohol use in moderation. 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 There is no relevant family history pertinent to the patient complaint. Exam Narrative: GENERAL: This is a well-nourished, well-developed patient, in no apparent distress. HEAD: normocephalic, atraumatic. EYES: PERRL. Sclera clear/white. Vision is grossly intact. EARS: External ears normal, auditory canals clear and without drainage, TMs normal without perforation. Hearing grossly intact. NOSE: External nose normal with no obvious nasal discharge, nares without redness, no rhinorrhea. THROAT: Mucous membranes moist, posterior pharynx clear. NECK: Neck supple, non-tender without lymphadenopathy, masses or thyromegaly. CARDIOVASCULAR: Regular rate and rhythm without murmurs, gallops, or rubs. RESPIRATORY: Diffuse wheezes bilaterally. GASTROINTESTINAL: Abdomen soft, non-tender, nondistended. Bowel sounds are active. No hepato-splenomegaly, or palpable masses. No guarding. SKIN: warm, intact with no suspicious lesions or rash, good texture and turgor. NEURO: awake, alert, and oriented to person, place and time. There were no obvious focal neurologic abnormalities. Course Course Level of Care: Express Care Visit Vital Signs Vital signs: Reviewed MDM - URI/Sore Throat MDM Narrative Medical decision making narrative: Do not smoke. Avoid smoke of any kind. May use a humidifier in the bedroom. Get plenty of fluids and rest. Take steroids as directed. Use your inhaler every 4-6 hours if needed. Follow up with your MD in 2-5 days. Go to the ER with any new or worsening symptoms. Patient given DuoNeb treatment in ED. Clear breath sounds bilaterally noted after treatment. No tachypnea, no distress. Patient talking in full sentences upon discharge. Differential Diagnosis Differential diagnosis: Likely upper respiratory infection, viral infection, influenza and other (covid) Lab Data Attestation: I reviewed the patient's lab results. Labs: Lab Results 03/21/24 03/21/24 Range/Units 13:07 13:14 POC Influenza A Ag Pending POC Influenza B Ag Pending POC SARS CoV-2 Ag Pending POC Grp A Strep Screen Negative (Negative) Critical Care Time Critical Care Time Critical Care Time: No Discharge Plan Discharge Clinical Impression: Asthma exacerbation Qualifiers: Asthma severity: unspecified severity Asthma persistence: unspecified Qualified Code(s): J45.901 - Unspecified asthma with (acute) exacerbation Patient Disposition: Home, Self-Care Condition: Stable Instructions: Asthma (ED) Additional Instructions: Do not smoke. Avoid smoke of any kind. May use a humidifier in the bedroom. Get plenty of fluids and rest. Take steroids as directed. Use your inhaler every 4-6 hours if needed. Follow up with your MD in 2-5 days. Go to the ER with any new or worsening symptoms. Patient Language: Uzbek Prescriptions: New prednisone 50 mg tablet 50 mg PO DAILY 5 Days Qty: 5 0RF albuterol sulfate [Ventolin HFA] 90 mcg/actuation HFA aerosol inhaler 2 puff inhalation QID PRN (Reason: shortness of breath or wheezing) Qty: 8.5 0RF albuterol sulfate 2.5 mg /3 mL (0.083 %) solution for nebulization 2.5 mg inhalation Q6H Qty: 75 0RF No Action buspirone 5 mg tablet 10 mg PO DAILY gabapentin 400 mg capsule 400 mg PO DIRECTED fluticasone propionate 50 mcg/actuation spray,suspension 1 spray INTRANASAL DAILY escitalopram oxalate 20 mg tablet 20 mg PO HS budesonide-formoterol [Symbicort] 160-4.5 mcg/actuation HFA aerosol inhaler 2 puff INHALATION BID PNV cmb#95-ferrous fumarate-FA [] 28 mg iron- 800 mcg Tablet 1 tablet PO DAILY albuterol sulfate 90 mcg/actuation HFA aerosol inhaler 2 inh inhalation QID PRN (Reason: shortness of breath or wheezing) Follow-up/Referrals: Niki,LILY Roman [Primary Care Provider] - Stand Alone Forms: Work/School Release IP Time of Disposition: 13:19
[2024-03-21] MEDS: IPRATROPIUM 0.5 MG/ALBUTEROL SULFATE 2.5 MG AMPUL.NEB 3 ML INHALATION (13:03)
[2024-03-21 13:09] LABS: EDSTREPNEGPOS1 Negative (Negative)
[2024-03-21 13:15] LABS: EDCOVIDSCREEN Negative (Negative); EDINFLUASCREEN Negative (Negative); EDINFLUBSCREEN Negative (Negative)
== END 2024-03-21 13:23 | disposition home or self-care (01) ==
PROVIDERS: Emergency Provider Nurse Practitioner; PCP Physician Assistant
DX: J45.901 Unspecified asthma with (acute) exacerbation (principal); J02.0 Streptococcal pharyngitis; Z20.822 Contact with and (suspected) exposure to COVID-19
CPT/HCPCS: 87081; 87426; 87804; 87880; 99213; G0463

== ENCOUNTER 2024-07-10 13:49 | Emergency (ER) | payer BC, SELFPAY ==
--- NOTE | 2024-07-10 13:55 | ED.URI ---
HPI - URI/Sore Throat General Chief Complaint: Upper Respiratory Infection Stated Complaint: Strep Symptoms Source: patient Mode of arrival: ambulatory Limitations: no limitations History of Present Illness HPI Narrative: Patient is a 28-year-old female who presents to clinic with complaints of a sore throat since yesterday. She has been taking ibuprofen for pain, with minimal relief. She states that she gets strep throat frequently. Denies any shortness of breath, difficulty swallowing nausea, vomiting, fevers, or body aches. Related Data Home Medications ?Medication ?Instructions ?Recorded ?Confirmed ?Last Taken ?Type albuterol sulfate 90 mcg/actuation 2 inh inhalation QID PRN shortness 01/24/23 07/10/24 01/24/23 02:00 History aerosol inhaler of breath or wheezing budesonide-formoterol HFA 160 2 puff inhalation BID 01/24/23 07/10/24 01/23/23 21:00 History mcg-4.5 mcg/actuation aerosol inhaler (Symbicort) fluticasone propionate 50 1 spray intranasal DAILY 01/24/23 07/10/24 01/23/23 08:00 History mcg/actuation nasal spray,suspension gabapentin 400 mg capsule 400 mg PO DIRECTED 05/04/23 07/10/24 Unknown History atomoxetine 40 mg capsule 40 mg PO DAILY 07/10/24 07/10/24 Unknown History bupropion HCl 300 mg 24 hr tablet, 300 mg PO DAILY 07/10/24 07/10/24 Unknown History extended release Allergies Allergy/AdvReac Type Severity Reaction Status Date / Time No Known Allergies Allergy Verified 07/10/24 13:53 Review of Systems Review of Systems: CONSTITUTIONAL: Denies body aches, fever, chills, or sweats. EYES: Denies visual changes, redness, or discharge. ENT: Reports sore throat. Denies rhinorrhea, congestion, or otalgia. CARDIOVASCULAR: Denies chest pain, palpitations, or edema. RESPIRATORY: Denies dyspnea. GASTROINTESTINAL: Denies abdominal pain, nausea, vomiting, or diarrhea. SKIN: Denies rash NEUROLOGIC: Denies headache All systems reviewed & are unremarkable except as noted in HPI and below PMFSH Past Medical History Medical History Anxiety Fibromyalgia Interstitial cystitis Asthma Surgical History Surgical History History of (10/06/17) Family History Family History Other No pertinent family history in first degree relatives Social History Social History Social History: Surrogate medical decision maker: Derrick Montalvo, father. Code status: Full code. Smoking status: Never smoker Second hand tobacco smoke exposure: No Alcohol intake: former Alcohol use details: Rare alcohol use in moderation. 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 Please see nursing chart for further information. There is no relevant family history pertinent to the presenting complaint. Exam Narrative: GENERAL: Ill-appearing, ?no acute distress. EYES: ?conjunctivae clear ENT: Mucous membranes moist. TM pearly chahal with normal light reflex bilaterally; no tragal tenderness. Oropharynx erythematous without lesions. Tonsils 2+ enlarged and with exudate. No drooling, no hoarseness, no trismus, uvula midline. No tripod positioning, hot potato voice, or soft palate swelling. NECK: Supple. No lymphadenopathy CHEST: Clear to auscultation, breath sounds equal. ?No respiratory distress, speaks in full sentences. HEART: Regular rate and rhythm. No murmur heard. SKIN: Warm, dry, no rash. NEURO: Alert and oriented x3.? Course Course Level of Care: Express Care Visit MDM - URI/Sore Throat MDM Narrative Medical decision making narrative: Discussed physical exam findings. Antibiotic for strep throat. Advised supportive measures and signs/symptoms to go to the ER. Pt is appropriate for outpatient treatment and follow up. Differential Diagnosis Differential diagnosis: Likely upper respiratory infection, sinusitis, viral infection, pharyngitis and other (strep throat) Lab Data Attestation: I reviewed the patient's lab results. Critical Care Time Critical Care Time Critical Care Time: No Discharge Plan Discharge Clinical Impression: Strep sore throat Patient Disposition: Home Condition: Stable Instructions: Strep Throat (ED) Additional Instructions: Recommendations: Take antibiotic as prescribed. Flonase spray and Zyrtec for sinus congestion Tylenol every 8 hours as needed for pain/fever Soft foods, cool liquids, warm tea. Gargle with warm saltwater twice a day. Chloraseptic spray and throat lozenges. Rest and stay hydrated. --Follow up with your PCP --Go to the ER immediately if you cannot swallow your saliva, trouble breathing/wheezing, throat swelling, pain is persistent and severe Patient Language: Luxembourgish Prescriptions: New amoxicillin 500 mg capsule 500 mg PO Q12H 10 Days Qty: 20 0RF No Action albuterol sulfate [Ventolin HFA] 90 mcg/actuation HFA aerosol inhaler 2 puff inhalation QID PRN (Reason: shortness of breath or wheezing) Qty: 8.5 0RF albuterol sulfate 2.5 mg /3 mL (0.083 %) solution for nebulization 2.5 mg inhalation Q6H Qty: 75 0RF gabapentin 400 mg capsule 400 mg PO DIRECTED atomoxetine 40 mg capsule 40 mg PO DAILY bupropion HCl 300 mg tablet extended release 24 hr 300 mg PO DAILY fluticasone propionate 50 mcg/actuation spray,suspension 1 spray INTRANASAL DAILY budesonide-formoterol [Symbicort] 160-4.5 mcg/actuation HFA aerosol inhaler 2 puff INHALATION BID albuterol sulfate 90 mcg/actuation HFA aerosol inhaler 2 inh inhalation QID PRN (Reason: shortness of breath or wheezing) Follow-up/Referrals: PHYSICIAN,PROGRAM MANAGER [Primary Care Provider] - Stand Alone Forms: Work/School Release IP Time of Disposition: 14:07
[2024-07-10 13:59] VITALS: BP 105/81; PULSE 104; RESP 16; TEMP 36.4; O2SAT 99
== END 2024-07-10 14:10 | disposition home or self-care (01) ==
DX: J02.0 Streptococcal pharyngitis (principal); M79.7 Fibromyalgia; N30.10 Interstitial cystitis (chronic) without hematuria; J45.909 Unspecified asthma, uncomplicated; F41.9 Anxiety disorder, unspecified
CPT/HCPCS: 99213; G0463